=== PATIENT | male | born 1965 | race Caucasian/White ===

== ENCOUNTER → 2016-09-20 | Outpatient (REF) | payer OTHER ==
[2016-09-20 18:16] LABS: MEAN CORPUSCULAR HGB CONC 32.9 g/dl (32.0-36.5); MEAN CORPUSCULAR VOLUME 90.9 fl (80.0-96.0); RED CELL DISTRIBUTION WIDTH 12.8 % (11.5-14.5); WHITE BLOOD COUNT 12.1 K/mm3 (4.0-10.0)
[2016-09-20 19:11] LABS: ALBUMIN/GLOBULIN RATIO 1.33 (1.00-1.93); ALKALINE PHOSPHATASE 60 U/L (45-117); ALT/SGPT 31 U/L (12-78); ANION GAP 8 MEQ/L (8-16); AST/SGOT 22 U/L (15-37); BILIRUBIN,TOTAL 0.3 MG/DL (0.2-1.0); BLOOD UREA NITROGEN 17 MG/DL (7-18); CALCIUM LEVEL 9.5 MG/DL (8.5-10.1); CARBON DIOXIDE LEVEL 29 MEQ/L (21-32); CHLORIDE LEVEL 105 MEQ/L (98-107); CHOLESTEROL LEVEL 215 MG/DL (<200); CREATININE FOR GFR 1.03 MG/DL (0.70-1.30); GLOMERULAR FILTRATION RATE > 60.0 (>56); GLUCOSE, FASTING 65 MG/DL (70-105); SODIUM LEVEL 142 MEQ/L (136-145); TRIGLYCERIDES LEVEL 298 MG/DL (<150)
== END ==
LOC: M SFHCCLAY 14:04
PROVIDERS: ATTEND Nurse Practitioner Family
DX: F41.9 Anxiety disorder, unspecified (principal); I73.9 Peripheral vascular disease, unspecified

== ENCOUNTER → 2016-11-20 | Outpatient (CLI) | payer OTHER ==
--- NOTE | 2016-11-21 06:26 | REP ---
Clinical: Left-sided neck mass. Technique: Real time bone scale and color evaluation using curved array transducer. Findings: Directed ultrasound examination along the left side of the neck at the site of palpable mass demonstrates a complex primarily cystic and mildly vascular lesion measuring 5.4 x 1.7 x 5.0 cm which is otherwise nonspecific. Differential diagnosis may include necrotic lymph node and mass as well as complex cyst and less likely abscess. Impression: Complex cystic lesion corresponding to palpable mass. Differential diagnosis includes but is not limited to complex cyst, necrotic lymph node/mass lesion, and less likely abscess. Signed by Manpreet Barnard MD 11/21/2016 06:18 A
== END ==
LOC: M RAD 15:18
PROVIDERS: ATTEND Surgery
DX: R93.8 Abnormal findings on diagnostic imaging of other specified body structures (principal)

== ENCOUNTER → 2018-07-08 | Outpatient (REF) | payer OTHER ==
[2018-07-09 11:39] LABS: BASO # 0.2 10^3/uL (0.0-0.2); EOS # 0.5 10^3/uL (0.0-0.50); EOS % 4.8 % (0.0-3.0); HEMATOCRIT 35.5 % (42.0-52.0); LYMPH # 1.9 10^3/uL (1.5-4.5); LYMPH % 17.4 % (24.0-44.0); MEAN CORPUSCULAR HEMOGLOBIN 19.8 pg (27.0-33.0); MEAN CORPUSCULAR HGB CONC 28.2 g/dl (32.0-36.5); MEAN CORPUSCULAR VOLUME 70.4 fl (80.0-96.0); MONO # 1.1 10^3/uL (0.0-0.8); MONO % 9.7 % (0.0-5.0); NEUTROPHILS # 7.2 10^3/uL (1.8-7.7); NEUTROPHILS % 65.6 % (36.0-66.0); PLATELET COUNT, AUTOMATED 396 10^3/uL (150-450); RED BLOOD COUNT 5.04 10^6/uL (4.30-6.10); WHITE BLOOD COUNT 10.9 10^3/uL (4.0-10.0)
[2018-07-09 12:00] LABS: ALT/SGPT 29 U/L (12-78); BILIRUBIN,TOTAL 0.2 MG/DL (0.2-1.0); BLOOD UREA NITROGEN 21 MG/DL (7-18); CALCIUM LEVEL 8.6 MG/DL (8.5-10.1); CARBON DIOXIDE LEVEL 25 MEQ/L (21-32); CHLORIDE LEVEL 107 MEQ/L (98-107); CHOLESTEROL LEVEL 152 MG/DL (<200); CHOLESTEROL RISK RATIO 5.066 (<5); CREATININE FOR GFR 0.89 MG/DL (0.70-1.30); GLOMERULAR FILTRATION RATE > 60.0 (>56); GLUCOSE, FASTING 85 MG/DL (70-100); HDL CHOLESTEROL 30 MG/DL (>40); LDL CHOLESTEROL 95 MG/DL (<100); NON-HDL-C 122 MG/DL; POTASSIUM SERUM 4.2 MEQ/L (3.5-5.1); SODIUM LEVEL 140 MEQ/L (136-145); TOTAL PROTEIN 6.9 GM/DL (6.4-8.2); TRIGLYCERIDES LEVEL 137 MG/DL (<150)
== END ==
LOC: M SFHCCLAY 14:08
PROVIDERS: ATTEND Family Medicine
DX: I73.9 Peripheral vascular disease, unspecified (principal); E78.5 Hyperlipidemia, unspecified

== ENCOUNTER → 2018-09-20 | Outpatient (CLI) | payer OTHER ==
--- NOTE | 2018-09-20 16:48 | REP ---
PA and lateral chest: There are no comparisons. The lung reyna are clear. The cardiac size is normal. The anuj, mediastinum, and skeletal structures are unremarkable. Impression: Negative PA and lateral chest. Electronically Signed by Colten Russo MD 09/20/2018 04:39 P
== END ==
LOC: M CLY 14:51
PROVIDERS: ATTEND Nurse Practitioner Family
DX: Z87.09 Personal history of other diseases of the respiratory system (principal)

== ENCOUNTER 2019-01-04 17:20 | Emergency (ER) | payer OTHER ==
[~2019-01-04] VITALS: Ht 180.3 cm; Wt 86.4 kg
[2019-01-04 18:50] LABS: BASO # 0.1 10^3/uL (0.0-0.2); BASO % 1.3 % (0.0-1.0); EOS # 0.5 10^3/uL (0.0-0.50); EOS % 5.3 % (0.0-3.0); HEMATOCRIT 36.7 % (42.0-52.0); LYMPH # 1.3 10^3/uL (1.5-4.5); LYMPH % 12.5 % (24.0-44.0); MEAN CORPUSCULAR HEMOGLOBIN 23.5 pg (27.0-33.0); MEAN CORPUSCULAR VOLUME 78.3 fl (80.0-96.0); MONO # 0.8 10^3/uL (0.0-0.8); MONO % 7.9 % (0.0-5.0); NEUTROPHILS # 7.3 10^3/uL (1.8-7.7); NEUTROPHILS % 72.8 % (36.0-66.0); PLATELET COUNT, AUTOMATED 373 10^3/uL (150-450); RED BLOOD COUNT 4.69 10^6/uL (4.30-6.10); WHITE BLOOD COUNT 10.1 10^3/uL (4.0-10.0)
[2019-01-04 19:07] LABS: INR 1.14; PROTHROMBIN TIME 14.3 SECONDS (11.8-14.0)
[2019-01-04 19:08] LABS: PARTIAL THROMBOPLASTIN TIME 30.8 SECONDS (25.0-38.4)
[2019-01-04 19:09] LABS: ERYTHROCYTE SEDIMENTATION RATE 7 mm/hr (0-20)
[2019-01-04 19:12] LABS: BLOOD UREA NITROGEN 17 MG/DL (7-18); C REACTIVE PROTEIN QUANTITATIV < 0.30 MG/DL (0.00-0.30); CARBON DIOXIDE LEVEL 29 MEQ/L (21-32); CHLORIDE LEVEL 106 MEQ/L (98-107); CREATININE FOR GFR 0.93 MG/DL (0.70-1.30); GLOMERULAR FILTRATION RATE > 60.0 (>56); GLUCOSE, FASTING 103 MG/DL (70-100); POTASSIUM SERUM 3.9 MEQ/L (3.5-5.1); SODIUM LEVEL 139 MEQ/L (136-145)
--- NOTE | 2019-01-04 20:00 | REPVR ---
EXAM: US Duplex Bilateral Lower Extremity Veins EXAM DATE/TIME: 01/04/2019 7:26 PM CLINICAL HISTORY: 53 years old, male; Pain; Leg, upper; Bilateral; Prior surgery; Surgery date: 1-6 months; Surgery type: Fem bypass in November 2018; Additional info: R/O dvt/swelling and firmness b groin after femoral bypass TECHNIQUE: Imaging protocol: Real-time duplex ultrasound of the Bilateral Lower Extremities with 2-D obne scale, color Doppler flow and spectral waveform analysis with image documentation. Complete exam focused on the bilateral lower extremity veins. COMPARISON: No relevant prior studies available. FINDINGS: Right deep veins: Unremarkable. The common femoral, femoral and popliteal veins are patent without thrombus. Normal Doppler waveforms. Normal compressibility and/or augmentation response. Right superficial veins: Saphenofemoral junction is patent without thrombus. Left deep veins: Unremarkable. The common femoral, femoral and popliteal veins are patent without thrombus. Normal Doppler waveforms. Normal compressibility and/or augmentation response. Left superficial veins: Saphenofemoral junction is patent without thrombus. Lymph nodes: Mildly prominent bilateral inguinal lymph nodes, measuring up to 1.4 x 0.5 cm on the right and 1.9 x 0.8 cm on the left. Soft tissues: Unremarkable. IMPRESSION: 1. No sonographic evidence of deep venous thrombosis. 2. Mildly prominent bilateral inguinal lymph nodes, nonspecific in appearance. Electronically signed by: Reagan Caldwell On 01/04/2019 20:00:15 PM
[2019-01-04] MEDS ORDERED: ISOVUE-370 76% 100ML VIAL (Q9967) As Ordered ONE (20:52)
--- NOTE | 2019-01-04 21:35 | REPVR ---
EXAM: CT Angiography Pelvis With Contrast EXAM DATE/TIME: 01/04/2019 9:11 PM CLINICAL HISTORY: 53 years old, male; Condition or disease; Other: Swelling; Prior surgery; Surgery date: <1 month; Additional info: R/O pseudoaneurysm/swelling after femoral bypass TECHNIQUE: Imaging protocol: Axial computed tomographic angiography images of the pelvis with intravenous contrast material, including non-contrast images if performed. Coronal and sagittal reformatted images were created and reviewed. 3D rendering: MIP reconstructed images were created and reviewed. Radiation optimization: All CT scans at this facility use at least one of these dose optimization techniques: automated exposure control; mA and/or kV adjustment per patient size (includes targeted exams where dose is matched to clinical indication); or iterative reconstruction. Contrast material: ISOVUE 370;Contrast volume: 100 ml;Contrast route: IV; COMPARISON: CT ABD PELVIS WITH CONTRAST 12/13/2015 8:18 PM FINDINGS: VASCULATURE: Aorta: Moderate atherosclerotic disease. Aortobifemoral bypass graft in place. Right iliac arteries: Severe atherosclerotic disease with occlusion of the [place] external iliac artery. Severe atherosclerotic disease and multifocal narrowing of the internal iliac artery. Left iliac arteries: Severe atherosclerotic disease with severe multifocal stenosis of the [place] external iliac artery. Severe atherosclerotic disease with multifocal narrowing and occlusion of the internal iliac artery. PELVIS: Stomach and bowel: Colonic diverticulosis without evidence of diverticulitis. Appendix: Normal. Bladder: Normal. No mass. Reproductive: Unremarkable as visualized. Intraperitoneal space: Unremarkable. No free air. No significant fluid collection. Retroperitoneal space: Small amount of left retroperitoneal edema and stranding, likely postsurgical. Bones/joints: No acute osseous abnormality. Mild degenerative changes. Soft tissues: Small, fat-containing umbilical hernia. Postsurgical changes in the bilateral inguinal regions and left lateral abdominal wall. No organized collection. No pseudoaneurysm. Lymph nodes: Small inguinal lymph nodes, likely reactive. No pathologically enlarged lymph nodes. IMPRESSION: 1. Postsurgical changes associated with recent aortobifemoral bypass. No organized collection. No definite pseudoaneurysm. 2. Additional findings, as above. Electronically signed by: Reagan Caldwell On 01/04/2019 21:34:45 PM
[2019-01-04 22:37] VITALS: BP 130/74
--- NOTE | 2019-01-13 09:28 | ED PDOC ---
Post-Departure Follow-Up [facility] demarco leblanc faxed formal report of cta pelvis for fu Jay Barreto MD Jan 13, 2019 09:28
== END 2019-01-04 22:39 | disposition home or self-care (01) ==
LOC: M ED 17:20
DX: R59.0 Localized enlarged lymph nodes (principal); I10 Essential (primary) hypertension; K27.9 Peptic ulcer, site unspecified, unspecified as acute or chronic, without hemorrhage or perforation; Z86.718 Personal history of other venous thrombosis and embolism; Z79.82 Long term (current) use of aspirin; F17.210 Nicotine dependence, cigarettes, uncomplicated
CPT/HCPCS: 36415; 72191; 76857; 80048; 85025; 85610; 85652; 85730; 86140; 93970; 99284; Q9967

== ENCOUNTER 2021-04-06 13:44 | Emergency (ER) | payer OTHER ==
[~2021-04-06] VITALS: Ht 180.3 cm; Wt 88.0 kg
--- OUTSIDE RECORDS SUMMARY | 2021-04-06 13:50 | CCD ---
Author Author [facility] Organization [facility] Address Unknown Phone Unavailable Care Team Providers Care Moisture Tester Name Role Phone Nicol Fontenot Unavailable PROBLEMS Type Condition ICD9-CM Code [id number] Code Onset Dates Condition S tatus W/U Status Risk SNOMED Code Notes Problem Erectile dysfunction, unspecified erectile dysfunction typ e N52.9 Active confirmed 904805284 Problem Nicotine dependence, unspecified, uncomplicated F1 7.200 Active confirmed 641210088 Problem Anxiety disorder, unspecified F41.9 Active confirm ed 854180302 Problem Hyperlipidemia, unspecified hyperlipidemia type E7 8.5 Active confirmed 95814302 Problem Sinusitis, unspecified chronicity, unspecified location J32.9 Active confirmed 32628348 Problem Diverticulitis of large inte jaylon without perforation or abscess without bleeding K57.32 Active confirmed 2097860 Problem Cigarette nicotine dependence without complication F17.210 Active confirmed 44961803 Problem Claudication I73.9 Active confirmed 9530185 00 Problem PAD (peripheral artery disease) I73.9 Active confi rmed 070272146 Problem Elevated blood-pressure reading, without diagnos is of hypertension R03.0 Active confirmed 757091383 Problem Peripheral vascular disease I73.9 Active confirmed 216208384 Problem Microcytic anemia D50.9 Active confirmed 23 3238735 Problem 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 Active confirmed 341679646 Problem Essential hypertension I10 Active confirmed 89391774 ALLERGIES Allergen (clinical drug ingredient) Drug/Non Drug Allergy do cumented on EMR Reaction Allergy Type Onset Date Status oxycodone Oxycodone Confusion Drug Allergy Active ENCOUNTERS from 1965 to 2021-04-05 Encounter Location Date Provider Diagnosis [facility] [phone] [place] [address] Mar, Nicol Mccallumry IMMUNIZATIONS No Information SOCIAL HISTORY Tobacco Use: Social History Observation Description Date Details (start date - stop date) Current Smoker Sex Assigned At : Social History Observation Description Sex Assigned At Unknown Education: Question Answer Notes Level of Education: College Audit Question Answer Notes Total Score: 4 Interpretation: Alcohol Education Language: Question Answer Notes Languages spoken: Polish Sexual Hx: Question Answer Notes Had sex in the last 12 months (vaginal, oral, or anal)? Yes Have you ever had an STD? No with Women only Use protection? No Drug and Alcohol Question Answer Notes Total Score: 1 Interpretation: Low level Alcohol Screening: Question Answer Notes Did you have a drink containing alcohol in the past year? Ye s Points 5 Interpretation Positive How often did you have six or more drinks on one occas ion in the past year? Less than monthly (1 point) How many drinks did you have on a typica l day when you were drinking in the past year? 5 or 6 (2 points) How often did you have a drink containing alcohol in t he past year? Two to four times a month (2 points) BMI Care Goal Follow-Up Question Answer Notes Above Normal BMI Follow-Up Dietary management educatio n, guidance, and counseling Tobacco Use: Question Answer Notes Are you a: current smoker Additional Findings: Tobacco User Moderate cigarette smoker (10-19 cigs/day) Smoking Cessation Information Given 03/08/2021 Patient counseled on the dangers of tobacco use and urged to quit: 03/08/2021 How many cigarettes a day do you smoke? 11-20 Are you interested in quitting? Thinking about quitting REASON FOR REFERRAL No Information VITAL SIGNS No information MEDICATIONS Medication SIG (Take, Route, Frequency, Duration) Notes Start Da te End Date Status Nitroglycerin 0.4 MG as directed Sublingual Unknown Amoxicillin 500 MG 1 tablet Orally Three times a day for 10 day( s) Sep, Unknown Multivitamin Adults - Orally Unk nown Toprol XL 25 MG 1 tablet Orally Once a day for 90 Unknown Ferrous Sulfate 324 (65 Fe) MG 1 tablet Orally D50.9 Once a day Unknown Amoxicillin-Pot Clavulanate 875-125 MG 1 tablet Orally every 12 hrs for 10 day(s) Feb, Not-Taking Lisinopril 2.5 MG 1 tablet Orally Once a day for 90 Unknown Nicotine 21 MG/24HR 1 patch to skin Transdermal Once a day Unknown Xanax 0.5 MG 1 tablet Orally tid for 30 Days Mar, Active Aspirin 81 MG 1 tablet Orally Once a day Unknown Acetaminophen-Codeine #3 300-30 MG 1 tablet as needed Orally every 6 hrs, MDD=4 for 7 day(s) Mar, Active Aspirin 81 MG as directed Orally Feb, A ctive Atorvastatin Calcium 40 MG 1 tablet Orally Once a day Active PROCEDURES No Information RESULTS No Results REASON FOR VISIT Xanax MEDICAL (GENERAL) HISTORY Type Description Date Medical History ANXIETY with Panic Medical History Diverticulosis Medical History PAD: Dr. Jackson Medical History PVD Medical History HYPERTENSION Medical History ERECTILE DYSFUNCTION Surgical History Tonsillectomy/Adnoidectomy AGE 2 Surgical History Angioplasty 10/2017 Surgical History aortobifem bypass d/t bilate ral claudication and aortoiliac occlusive disease 11/2018 Hospitalization History [facility] 11/27/2018- 019 Goals Section No Information Health Concerns No Information MEDICAL EQUIPMENT No Information MENTAL STATUS No Information FUNCTIONAL STATUS No Information ASSESSMENTS No Information PLAN OF TREATMENT Medication Medication Name Sig Start Date Stop Date Atorvastatin Calcium 40 MG 1 tablet Orally Once a day Aspirin 81 MG as directed Orally Feb, Xanax 0.5 MG 1 tablet Orally tid for 30 Days Mar, Acetaminophen-Codeine #3 300-30 MG 1 tablet as needed Orally every 6 hrs, MDD=4 for 7 day(s) Mar, Insurance Providers Payer Name Payer Address Payer Phone Insured Name Patient Relati onship to Insured Coverage Start Date Coverage End Date [facility] [employer] CLAIM[facility] DEPT [address] [place] [phone] [employer] self
--- OUTSIDE RECORDS SUMMARY | 2021-04-06 13:51 | CCD ---
Author Author [facility] Organization [facility] Address Unknown Phone Unavailable Care Team Providers Care Sales Floor Team Member Name Role Phone Nicol Fontenot Unavailable PROBLEMS Type Condition ICD9-CM Code [id number] Code Onset Dates Condition S tatus W/U Status Risk SNOMED Code Notes Problem Erectile dysfunction, unspecified erectile dysfunction typ e N52.9 Active confirmed 897104740 Problem Nicotine dependence, unspecified, uncomplicated F1 7.200 Active confirmed 543666303 Problem Anxiety disorder, unspecified F41.9 Active confirm ed 867651911 Problem Hyperlipidemia, unspecified hyperlipidemia type E7 8.5 Active confirmed 78989466 Problem Sinusitis, unspecified chronicity, unspecified location J32.9 Active confirmed 01299961 Problem Diverticulitis of large inte jaylon without perforation or abscess without bleeding K57.32 Active confirmed 4966584 Problem Cigarette nicotine dependence without complication F17.210 Active confirmed 32582739 Problem Claudication I73.9 Active confirmed 3642636 00 Problem PAD (peripheral artery disease) I73.9 Active confi rmed 908735414 Problem Elevated blood-pressure reading, without diagnos is of hypertension R03.0 Active confirmed 125951063 Problem Peripheral vascular disease I73.9 Active confirmed 203177842 Problem Microcytic anemia D50.9 Active confirmed 23 8751018 Problem 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 Active confirmed 402337843 Problem Essential hypertension I10 Active confirmed 75707816 ALLERGIES Allergen (clinical drug ingredient) Drug/Non Drug Allergy do cumented on EMR Reaction Allergy Type Onset Date Status oxycodone Oxycodone Confusion Drug Allergy Active ENCOUNTERS from 1963 to 2021-03-09 Encounter Location Date Provider Diagnosis [facility] [phone] [place] [address] Feb, Nicol Fontenot Cigarette nicotine dependence without co mplication F17.210 ; Peripheral vascular disease I73.9 ; Hyperlipidemia, unspecified hyperlipidemia type E78.5 ; Diverticulitis of large intestine without perforation or abscess without bleeding K57.32 ; Poor dentition K08.9 and PAD (peripheral artery disease) I73.9 IMMUNIZATIONS No Information SOCIAL HISTORY Tobacco Use: Social History Observation Description Date Details (start date - stop date) Current Smoker Sex Assigned At : Social History Observation Description Sex Assigned At Unknown Education: Question Answer Notes Level of Education: College Audit Question Answer Notes Total Score: 4 Interpretation: Alcohol Education Language: Question Answer Notes Languages spoken: Citizen Of [place] Sexual Hx: Question Answer Notes Had sex [...] REASON FOR REFERRAL No Information VITAL SIGNS Weight 198 lbs Feb, Weight-kg 89.81 kg Feb, Height 71 in Feb, BMI 27.61 kg/m2 Feb, Heart Rate 72 /min Feb, Respiratory Rate 20 /min Feb, Temperature 98.1 degrees Fahrenheit Feb, Oximetry 96 Feb, Blood pressure systolic 124 mm Hg Feb, Blood pressure diastolic 76 mm Hg Feb, MEDICATIONS Medication SIG (Take, Route, Frequency, Duration) Notes Start Da te End Date Status Aspirin 81 MG 1 tablet Orally Once a day Unknown Amoxicillin 500 MG 1 tablet Orally Three times a day for 10 day( s) Sep, Unknown Multivitamin Adults - Orally Unk nown Toprol XL 25 MG 1 tablet Orally Once a day for 90 Unknown Ferrous Sulfate 324 (65 Fe) MG 1 tablet Orally D50.9 Once a day Unknown Xanax 0.5 MG 1 tablet Orally four times daily as needed MDD=4 for 30 Days Jan, Active Nitroglycerin 0.4 MG as directed Sublingual Unknown Nicotine 21 MG/24HR 1 patch to skin Transdermal Once a day Unknown Amoxicillin-Pot Clavulanate 875-125 MG 1 tablet Orally every 12 hrs for 10 day(s) Feb, Not-Taking Atorvastatin Calcium 40 MG 1 tablet Orally Once a day Active Lisinopril 2.5 MG 1 tablet Orally Once a day for 90 Unknown Aspirin 81 MG as directed Orally Feb, A ctive Acetaminophen-Codeine #3 300-30 MG 1 tablet as needed Orally every 6 hrs, MDD=4 for 7 day(s) Feb, Active PROCEDURES No Information RESULTS No Results REASON FOR VISIT former SP pt MEDICAL (GENERAL) HISTORY Type Description Date Medical History ANXIETY with Panic Medical History Diverticulosis Medical History PAD: Dr. Jackson Medical History PVD Medical History HYPERTENSION Medical History ERECTILE DYSFUNCTION Surgical History Tonsillectomy/Adnoidectomy AGE 2 Surgical History Angioplasty 10/2017 Surgical History aortobifem bypass d/t bilate ral claudication and aortoiliac occlusive disease 11/2018 Hospitalization History [facility] 11/27/2018- 019 Goals Section No Information Health Concerns No Information MEDICAL EQUIPMENT No Information MENTAL STATUS No Information FUNCTIONAL STATUS No Information ASSESSMENTS Encounter Date Diagnosis Assessment Notes Treatment Notes Treatm ent Clinical Notes Feb, Cigarette nicotine dependenc e without complication (ICD-10 - F17.210) smoking cessation counseling given. Risks of smoking, including vascular disease (including stroke, heart attack), COPD ( including emphysema and chronic bronchitis), as well as reduced quality of life reviewed with pt Feb, Peripheral vascular disease (ICD-10 - I73.9) Continue with vascular surgery Feb, Hyperlipidemia, unspecified hyperlipidemia type (ICD-10 - E78.5) He will continue to take his moderate dose statin. Most likely he was placed on this due to his history of smoking some hyperlipidemia as well as peripheral vascular and peripheral artery disease for cardiovascular protection. Patient was advised he needs a CMP and lipid updated Feb, Diverticulitis of large inte jaylon without perforation or abscess without bleeding (ICD-10 - K57.32) Patient was strongly encouraged to proceed with colonoscopy given his history of diverticulitis as well as family history of colon cancer in his mother. He continues to decline colonoscopy and states he will monitor his symptoms. Feb, Poor dentition (ICD-10 - K08.9) I strongly encourage patient to find a dentist and discussed the ramifications of continued poor dentition and recurrent oral infections. Feb, PAD (peripheral artery disease) (ICD-10 - I73.9) Continue with vascular surgery. I did stop the cilostazol. I advised if his claudication symptoms return patient to contact the office. He was placed on aspirin 81 mg daily. He declined the Plavix. Patient is aware that his smoking increases his risk of further peripheral artery disease or other complications Feb, Other Patient is to c omplete his labs we will see him back in the office in 6 months time or sooner as needed. Patient verbalized understanding and agreement with stated plan PLAN OF TREATMENT Medication Medication Name Sig Start Date Stop Date Atorvastatin Calcium 40 MG 1 tablet Orally Once a day Aspirin 81 MG as directed Orally Feb, Treatment Notes Assessment Notes Clinical Notes Cigarette nicotine dependence without complication smoking cessation counseling given. Risks of smoking, including vascular disease (including stroke, heart attack), COPD ( including emphysema and chronic bronchitis), as well as reduced quality of life reviewed with pt Peripheral vascular disease Continue wit h vascular surgery Hyperlipidemia, unspecified hyperlipidemia type He will continue to take his moderate dose statin. Most likely he was placed on this due to his history of smoking some hyperlipidemia as well as peripheral vascular and peripheral artery disease for cardiovascular protection. Patient was advised he needs a CMP and lipid updated Diverticulitis of large intestine withou t perforation or abscess without bleeding Patient was strongly encoura ged to proceed with colonoscopy given his history of diverticulitis as well as family history of colon cancer in his mother. He continues to decline colonoscopy and states he will monitor his symptoms. Poor dentition I strongly encourage patient to find a dentist and discussed the ramifications of continued poor dentition and recurrent oral infections. PAD (peripheral artery disease) Continue with vascular surgery. I did stop the cilostazol. I advised if his claudication symptoms return patient to contact the office. He was placed on aspirin 81 mg daily. He declined the Plavix. Patient is aware that his smoking increases his risk of further peripheral artery disease or other complications Treatment Notes Test Name Order Date Low Dose Lung Screening CT Chest 2021-03-08 Next Appt Details 6 Months Reason: Insurance Providers Payer Name Payer Address Payer Phone Insured Name Patient Relati onship to Insured Coverage Start Date Coverage End Date [facility] [employer] DEPT [address] [facility] [phone] [employer] self
--- OUTSIDE RECORDS SUMMARY | 2021-04-06 13:51 | CCD ---
Author Author [facility] Organization [facility] Address Unknown Phone Unavailable Care Team Providers Care Calculating Machine Operator Name Role Phone Nicol Fontenot Unavailable PROBLEMS Type Condition ICD9-CM Code [id number] Code Onset Dates Condition S tatus W/U Status Risk SNOMED Code Notes Problem Nicotine dependence, unspecified, uncomplicated F1 7.200 Active confirmed 598678686 Problem Elevated blood-pressure reading, without diagnos is of hypertension R03.0 Active confirmed 697683311 Problem Hyperlipidemia, unspecified hyperlipidemia type E7 8.5 Active confirmed 24394200 Problem Erectile dysfunction, unspecified erectile dysfunction typ e N52.9 Active confirmed 155263488 Problem 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 Active confirmed 173716348 Problem Anxiety disorder, unspecified F41.9 Active confirm ed 448442044 Problem Essential hypertension I10 Active confirmed 45536293 Problem Claudication I73.9 Active confirmed 5127533 00 Problem Sinusitis, unspecified chronicity, unspecified location J32.9 Active confirmed 95243934 Problem Diverticulitis of large inte jaylon without perforation or abscess without bleeding K57.32 Active confirmed 0721929 Problem Peripheral vascular disease I73.9 Active confirmed 449619129 Problem Microcytic anemia D50.9 Active confirmed 23 4189441 ALLERGIES Allergen (clinical drug ingredient) Drug/Non Drug Allergy do cumented on EMR Reaction Allergy Type Onset Date Status [place] confusion Drug Allergy Active ENCOUNTERS from 1965 to 2021-02-23 Encounter Location Date Provider Diagnosis [facility] Aleah [address] [phone] [place] [address] Feb, Nicol Fontenot IMMUNIZATIONS No Information SOCIAL HISTORY Tobacco Use: Social History Observation Description Date Details (start date - stop date) Current Smoker Sex Assigned At : Social History Observation Description Sex Assigned At Unknown Education: Question Answer Notes Level of Education: College Audit Question Answer Notes Total Score: 9 Interpretation: Simple Advice Language: Question Answer Notes Languages spoken: Persian Sexual Hx: Question Answer Notes Had sex [...] smoker (10-19 cigs/day) Smoking Cessation Information Given 12/17/2018 Patient counseled on the dangers of tobacco use and urged to quit: 12/17/2018 How many cigarettes a day do you smoke? 11-20 Are you interested in quitting? Thinking about quitting REASON FOR REFERRAL No Information VITAL SIGNS No information MEDICATIONS Medication SIG (Take, Route, Frequency, Duration) Notes Start Da te End Date Status Atorvastatin Calcium 40 MG 1 tablet Orally Once a day for 90 Active Aspirin 81 MG 1 tablet Orally Once a day Unknown Ferrous Sulfate 324 (65 Fe) MG 1 tablet Orally D50.9 Once a day Unknown Nitroglycerin 0.4 MG as directed Sublingual Unknown Acetaminophen-Codeine #3 300-30 MG 1 tablet as needed Orally every 6 hrs, MDD=4 for 7 day(s) Jan, Active Nicotine 21 MG/24HR 1 patch to skin Transdermal Once a day Unknown Lisinopril 2.5 MG 1 tablet Orally Once a day for 90 Unknown Xanax 0.5 MG 1 tablet Orally four times daily as needed MDD=4 for 30 Days Jan, Active Multivitamin Adults - Orally Unk nown Amoxicillin 500 MG 1 tablet Orally Three times a day for 10 day( s) Sep, Unknown Toprol XL 25 MG 1 tablet Orally Once a day for 90 Unknown Cilostazol 100 MG 1 tablet 30 minutes before o r 2 hours after breakfast and dinner Orally once a day for 30 Days Active PROCEDURES No Information RESULTS No Results REASON FOR VISIT script MEDICAL (GENERAL) HISTORY Type Description Date Medical History ANXIETY Medical History PANIC ATTACKS Medical History ERECTILE DYSFUNCTION Medical History DIVERTICULAR DISEASE Medical History PAD Medical History PVD Medical History HYPERTENSION Surgical History t & a AGE 2 Surgical History Angioplasty 10/2017 Surgical History aortobifem and right femoral d/t bilateral claudication and aortoiliac occlusive disease 11/2018 Hospitalization History [facility] 11/27/2018- 019 Goals Section No Information Health Concerns No Information MEDICAL EQUIPMENT No Information MENTAL STATUS No Information FUNCTIONAL STATUS No Information ASSESSMENTS No Information PLAN OF TREATMENT Medication Medication Name Sig Start Date Stop Date Xanax 0.5 MG 1 tablet Orally four times daily as need ed MDD=4 for 30 Days Jan, Atorvastatin Calcium 40 MG 1 tablet Orally Once a day for 90 Cilostazol 100 MG 1 tablet 30 minutes before o r 2 hours after breakfast and dinner Orally once a day for 30 Days Acetaminophen-Codeine #3 300-30 MG 1 tablet as needed Orally every 6 hrs, MDD=4 for 7 day(s) Jan, Next Appt Details Provider Name:Nicol Fontenot, 03-08 04:00:00 PM, [address] , , [place], [address], Insurance Providers Payer Name Payer Address Payer Phone Insured Name Patient Relati onship to Insured Coverage Start Date Coverage End Date [facility] CORPORATE CLAIMS DEPT [address] [facility] [phone] HAIR FARRIS self
--- OUTSIDE RECORDS SUMMARY | 2021-04-06 13:51 | CCD ---
Author Author [facility] Organization [facility] Address Unknown Phone Unavailable Care Team Providers Care Lead Qa Analyst Name Role Phone [facility] Unavailable PROBLEMS Type Condition ICD9-CM Code [id number] Code Onset Dates Condition S tatus W/U Status Risk SNOMED Code Notes Problem Nicotine dependence, unspecified, uncomplicated F1 7.200 Active confirmed 710783881 Problem Elevated blood-pressure reading, without diagnos is of hypertension R03.0 Active confirmed 730905271 Problem Hyperlipidemia, unspecified hyperlipidemia type E7 8.5 Active confirmed 91211021 Problem Erectile dysfunction, unspecified erectile dysfunction typ e N52.9 Active confirmed 881564872 Problem 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 Active confirmed 008494812 Problem Anxiety disorder, unspecified F41.9 Active confirm ed 879876626 Problem Essential hypertension I10 Active confirmed 11463503 Problem Claudication I73.9 Active confirmed 3648177 00 Problem Sinusitis, unspecified chronicity, unspecified location J32.9 Active confirmed 62439201 Problem Diverticulitis of large inte jaylon without perforation or abscess without bleeding K57.32 Active confirmed 4589151 Problem Peripheral vascular disease I73.9 Active confirmed 413077242 Problem Microcytic anemia D50.9 Active confirmed 23 2536880 ALLERGIES Allergen (clinical drug ingredient) Drug/Non Drug Allergy do cumented on EMR Reaction Allergy Type Onset Date Status [place] confusion Drug Allergy Active ENCOUNTERS from 1965 to 2021-01-28 Encounter Location Date Provider Diagnosis [facility] [address] [phone] [place] [address] Jan, Albert Armenta Pain, dental K08.89 IMMUNIZATIONS No Information SOCIAL HISTORY Tobacco Use: Social History Observation Description Date Details (start date - stop date) Current Smoker Sex Assigned At : Social History Observation Description Sex Assigned At Unknown Education: Question Answer Notes Level of Education: College Audit Question Answer Notes Total Score: 9 Interpretation: Simple Advice Language: Question Answer Notes Languages spoken: Estonian Sexual Hx: Question Answer Notes Had sex [...] Notes Start Da te End Date Status Toprol XL 25 MG 1 tablet Orally Once a day for 90 Unknown Xanax 0.5 MG 1 tablet Orally four times daily as needed MDD=4 for 30 Days Feb, Active Atorvastatin Calcium 40 MG 1 tablet Orally Once a day for 90 Unknown Multivitamin Adults - Orally Unk nown Aspirin 81 MG 1 tablet Orally Once a day Unknown Lisinopril 2.5 MG 1 tablet Orally Once a day for 90 Unknown Ferrous Sulfate 324 (65 Fe) MG 1 tablet Orally D50.9 Once a day Unknown Nicotine 21 MG/24HR 1 patch to skin Transdermal Once a day Unknown Cilostazol 100 MG 1 tablet 30 minutes before o r 2 hours after breakfast and dinner Orally Twice a day Unknow n Amoxicillin 500 MG 1 tablet Orally Three times a day for 10 day( s) Sep, Unknown Acetaminophen-Codeine #3 300-30 MG 1 tablet as needed Orally every 6 hrs, MDD=4 for 7 day(s) Jan, Active Nitroglycerin 0.4 MG as directed Sublingual Unknown PROCEDURES No Information RESULTS No Results REASON FOR VISIT renewal MEDICAL (GENERAL) HISTORY Type Description Date Medical History ANXIETY Medical History PANIC ATTACKS Medical History ERECTILE DYSFUNCTION Medical History DIVERTICULAR DISEASE Medical History PAD Medical History PVD Medical History HYPERTENSION Surgical History t & a AGE 2 Surgical History Angioplasty 10/2017 Surgical History aortobifem and right femoral d/t bilateral claudication and aortoiliac occlusive disease 11/2018 Hospitalization History [facility] 11/27/2018- 019 Goals Section No Information Health Concerns No Information MEDICAL EQUIPMENT No Information MENTAL STATUS No Information FUNCTIONAL STATUS No Information ASSESSMENTS Encounter Date Diagnosis Assessment Notes Treatment Notes Treatm ent Clinical Notes Jan, Pain, dental (ICD-10 - K08.89) PLAN OF TREATMENT Medication Medication Name Sig Start Date Stop Date Xanax 0.5 MG 1 tablet Orally four times daily as need ed MDD=4 for 30 Days Feb, Acetaminophen-Codeine #3 300-30 MG 1 tablet as needed Orally every 6 hrs, MDD=4 for 7 day(s) Jan, Next Appt Details Provider Name:Nicol Fontenot, 03-08 04:00:00 PM, [address] , , [place], [address], Insurance Providers Payer Name Payer Address Payer Phone Insured Name Patient Relati onship to Insured Coverage Start Date Coverage End Date [facility] CORPORATE CLAIMS DEPT [address] [facility] [phone] HAIR [place]ARRIS self
--- OUTSIDE RECORDS SUMMARY | 2021-04-06 13:51 | CCD ---
Author Author [facility] Organization [facility] Address Unknown Phone Unavailable Care Team Providers Care Cloth Roll Winder Name Role Phone Rock Nichols Unavailable PROBLEMS Type Condition ICD9-CM Code [id number] Code Onset Dates Condition S tatus W/U Status Risk SNOMED Code Notes Problem Nicotine dependence, unspecified, uncomplicated F1 7.200 Active confirmed 645135505 Problem Elevated blood-pressure reading, without diagnos is of hypertension R03.0 Active confirmed 280669065 Problem Hyperlipidemia, unspecified hyperlipidemia type E7 8.5 Active confirmed 08199019 Problem Erectile dysfunction, unspecified erectile dysfunction typ e N52.9 Active confirmed 961519826 Problem 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 Active confirmed 621921063 Problem Anxiety disorder, unspecified F41.9 Active confirm ed 275980574 Problem Essential hypertension I10 Active confirmed 91986659 Problem Claudication I73.9 Active confirmed 9135143 00 Problem Sinusitis, unspecified chronicity, unspecified location J32.9 Active confirmed 39373858 Problem Diverticulitis of large inte jaylon without perforation or abscess without bleeding K57.32 Active confirmed 7333252 Problem Peripheral vascular disease I73.9 Active confirmed 556736927 Problem Microcytic anemia D50.9 Active confirmed 23 6629209 ALLERGIES Allergen (clinical drug ingredient) Drug/Non Drug Allergy do cumented on EMR Reaction Allergy Type Onset Date Status [place] confusion Drug Allergy Active ENCOUNTERS from 1963 to 2021-02-25 Encounter Location Date Provider Diagnosis [facility] Aleah [address] [phone] [place] [address] Feb, Rock Nichols IMMUNIZATIONS No Information SOCIAL HISTORY Tobacco Use: Social History Observation Description Date Details (start date - stop date) Current Smoker Sex Assigned At : Social History Observation Description Sex Assigned At Unknown Education: Question Answer Notes Level of Education: College Audit Question Answer Notes Total Score: 9 Interpretation: Simple Advice Language: Question Answer Notes Languages spoken: Thai Sexual Hx: Question Answer Notes Had sex [...] every 12 hrs for 10 day(s) Feb, Active Xanax 0.5 MG 1 tablet Orally four times daily as needed MDD=4 for 30 Days Jan, Active Atorvastatin Calcium 40 MG 1 tablet Orally Once a day for 90 Active Multivitamin Adults - Orally Unk nown Ferrous Sulfate 324 (65 Fe) MG 1 tablet Orally D50.9 Once a day Unknown Cilostazol 100 MG 1 tablet 30 minutes before o r 2 hours after breakfast and dinner Orally once a day for 30 Days Active Acetaminophen-Codeine #3 300-30 MG 1 tablet as needed Orally every 6 hrs, MDD=4 for 7 day(s) Jan, Active Aspirin 81 MG 1 tablet Orally Once a day Unknown Toprol XL 25 MG 1 tablet Orally Once a day for 90 Unknown Amoxicillin 500 MG 1 tablet Orally Three times a day for 10 day( s) Sep, Unknown Lisinopril 2.5 MG 1 tablet Orally Once a day for 90 Unknown PROCEDURES No Information RESULTS No Results [...] Medication Name Sig Start Date Stop Date Amoxicillin-Pot Clavulanate 875-125 MG 1 tablet Orally every 12 hrs for 10 day(s) Feb, Atorvastatin Calcium 40 MG 1 tablet Orally Once a day for 90 Cilostazol 100 MG 1 tablet 30 minutes before o r 2 hours after breakfast and dinner Orally once a day for 30 Days Xanax 0.5 MG 1 tablet Orally four times daily as need ed MDD=4 for 30 Days Jan, Acetaminophen-Codeine #3 300-30 MG 1 tablet as needed Orally every 6 hrs, MDD=4 for 7 day(s) Jan, Next Appt Details Provider Name:Nicol Fontenot, 2020-03-08 04:00:00 PM, [address] , , [place], [address], Insurance Providers Payer Name Payer Address Payer Phone Insured Name Patient Relati onship to Insured Coverage Start Date Coverage End Date [facility] CORPORATE CLAIMS DEPT [address] [facility] [phone] HAIR FARRIS self
--- OUTSIDE RECORDS SUMMARY | 2021-04-06 13:51 | CCD ---
Author Author [facility] Organization [facility] Address Unknown Phone Unavailable Care Team Providers Care Grout Machine Operator Name Role Phone Nicol Fontenot Unavailable PROBLEMS Type Condition ICD9-CM Code PCA41-BH Code Onset Dates Condition S tatus W/U Status Risk SNOMED Code Notes Problem Nicotine dependence, unspecified, uncomplicated F1 7.200 Active confirmed 088148600 Problem Elevated blood-pressure reading, without diagnos is of hypertension R03.0 Active confirmed 790840300 Problem Hyperlipidemia, unspecified hyperlipidemia type E7 8.5 Active confirmed 22561947 Problem Erectile dysfunction, unspecified erectile dysfunction typ e N52.9 Active confirmed 783813156 Problem 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 Active confirmed 024966420 Problem Anxiety disorder, unspecified F41.9 Active confirm ed 484552663 Problem Essential hypertension I10 Active confirmed 52759319 Problem Claudication I73.9 Active confirmed 0174838 00 Problem Sinusitis, unspecified chronicity, unspecified location J32.9 Active confirmed 93674682 Problem Diverticulitis of large inte jaylon without perforation or abscess without bleeding K57.32 Active confirmed 3777520 Problem Peripheral vascular disease I73.9 Active confirmed 060598268 Problem Microcytic anemia D50.9 Active confirmed 23 7920345 ALLERGIES Allergen (clinical drug ingredient) Drug/Non Drug Allergy do cumented on EMR Reaction Allergy Type Onset Date Status [place] confusion Drug Allergy Active ENCOUNTERS from 1965 to 2021-03-01 Encounter Location Date Provider Diagnosis [facility] [address] [phone] [place] [address] Feb, Nicol Fontenot Pain, dental K08.89 IMMUNIZATIONS No Information SOCIAL HISTORY Tobacco Use: Social History Observation Description Date Details (start date - stop date) Current Smoker Sex Assigned At : Social History Observation Description Sex Assigned At Unknown Education: Question Answer Notes Level of Education: College Audit Question Answer Notes Total Score: 9 Interpretation: Simple Advice Language: Question Answer Notes Languages spoken: Marshallese Sexual Hx: Question Answer Notes Had sex [...] once a day for 30 Days Active Toprol XL 25 MG 1 tablet Orally Once a day for 90 Unknown Aspirin 81 MG 1 tablet Orally Once a day Unknown Acetaminophen-Codeine #3 300-30 MG 1 tablet as needed Orally every 6 hrs, MDD=4 for 7 day(s) Feb, Active Amoxicillin 500 MG 1 tablet Orally Three times a day for 10 day( s) Sep, Unknown Lisinopril 2.5 MG 1 tablet Orally Once a day for 90 Unknown PROCEDURES No Information RESULTS No Results REASON FOR VISIT refill MEDICAL (GENERAL) HISTORY Type Description Date Medical History ANXIETY Medical History PANIC ATTACKS Medical History ERECTILE DYSFUNCTION Medical History DIVERTICULAR DISEASE Medical History PAD Medical History PVD Medical History HYPERTENSION Surgical History t & a AGE 2 Surgical History Angioplasty 10/2017 Surgical History aortobifem and right femoral d/t bilateral claudication and aortoiliac occlusive disease 11/2018 Hospitalization History [facility] 11/27/2018- 019 Goals Section No Information Health Concerns No Information MEDICAL EQUIPMENT No Information MENTAL STATUS No Information FUNCTIONAL STATUS No Information ASSESSMENTS Encounter Date Diagnosis Assessment Notes Treatment Notes Treatm ent Clinical Notes Feb, Pain, dental (ICD-10 - K08.89) PLAN OF [...] 6 hrs, MDD=4 for 7 day(s) Feb, Next Appt Details Provider Name:Nicol Fontenot, 03-08 04:00:00 PM, [address], , [place], [address], Insurance Providers Payer Name Payer Address Payer Phone Insured Name Patient Relati onship to Insured Coverage Start Date Coverage End Date [facility] CORPORATE CLAIMS DEPT [address] [place] [phone] HAIR FARRIS self
--- OUTSIDE RECORDS SUMMARY | 2021-04-06 13:51 | CCD ---
Author Author [facility] Organization [facility] Address Unknown Phone Unavailable Care Team Providers Care Tube Molder Fiberglass Name Role Phone Nicol Fontenot Unavailable PROBLEMS Type Condition ICD9-CM Code UAH07-JV Code Onset Dates Condition S tatus W/U Status Risk SNOMED Code Notes Problem Erectile dysfunction, unspecified erectile dysfunction typ e N52.9 Active confirmed 977461779 Problem Nicotine dependence, unspecified, uncomplicated F1 7.200 Active confirmed 034436030 Problem Anxiety disorder, unspecified F41.9 Active confirm ed 337863225 Problem Hyperlipidemia, unspecified hyperlipidemia type E7 8.5 Active confirmed 49551965 Problem Sinusitis, unspecified chronicity, unspecified location J32.9 Active confirmed 49924309 Problem Diverticulitis of large inte jaylon without perforation or abscess without bleeding K57.32 Active confirmed 8342534 Problem Cigarette nicotine dependence without complication F17.210 Active confirmed 32593223 Problem Claudication I73.9 Active confirmed 5001147 00 Problem PAD (peripheral artery disease) I73.9 Active confi rmed 063098585 Problem Elevated blood-pressure reading, without diagnos is of hypertension R03.0 Active confirmed 056573588 Problem Peripheral vascular disease I73.9 Active confirmed 878420151 Problem Microcytic anemia D50.9 Active confirmed 23 5909239 Problem 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 Active confirmed 248890583 Problem Essential hypertension I10 Active confirmed 00134993 ALLERGIES Allergen (clinical drug ingredient) Drug/Non Drug Allergy do cumented on EMR Reaction Allergy Type Onset Date Status oxycodone Oxycodone Confusion Drug Allergy Active ENCOUNTERS from 1963 to 2021-03-22 Encounter Location Date Provider Diagnosis [facility] Valentín [address] [phone] [place] [address] Mar, 2021 Nicol Fontenot Pain, dental K08.89 IMMUNIZATIONS No Information SOCIAL HISTORY Tobacco Use: Social History Observation Description Date Details (start date - stop date) Current Smoker Sex Assigned At : Social History Observation Description Sex Assigned At Unknown Education: Question Answer Notes Level of Education: College Audit Question Answer Notes Total Score: 4 Interpretation: Alcohol Education Language: Question Answer Notes Languages spoken: Sami Sexual Hx: Question Answer Notes Had sex [...] tablet Orally D50.9 Once a day Unknown Lisinopril 2.5 MG 1 tablet Orally Once a day for 90 Unknown Xanax 0.5 MG 1 tablet Orally Twice a day prn MDD 2 for 30 Days Mar, Active Nicotine 21 MG/24HR 1 patch to skin Transdermal Once a day Unknown Acetaminophen-Codeine #3 300-30 MG 1 tablet as needed Orally every 6 hrs, MDD=4 for 7 day(s) Mar, Active Aspirin 81 MG 1 tablet Orally Once a day Unknown Amoxicillin-Pot Clavulanate 875-125 MG 1 tablet Orally every 12 hrs for 10 day(s) Feb, Not-Taking Aspirin 81 MG as directed Orally Feb, A ctive Atorvastatin Calcium 40 MG 1 tablet Orally Once a day Active PROCEDURES No Information RESULTS No Results REASON FOR VISIT Refill - T3 MEDICAL (GENERAL) HISTORY Type Description Date Medical History ANXIETY with Panic Medical History Diverticulosis Medical History PAD: Dr. Jackson Medical History PVD Medical History HYPERTENSION Medical History ERECTILE DYSFUNCTION Surgical History Tonsillectomy/Adnoidectomy AGE 2 Surgical History Angioplasty 10/2017 Surgical History aortobifem bypass d/t bilate ral claudication and aortoiliac occlusive disease 11/2018 Hospitalization History [facility] 11/27/2018- 019 Goals Section No Information Health Concerns No Information MEDICAL EQUIPMENT No Information MENTAL STATUS No Information FUNCTIONAL STATUS No Information ASSESSMENTS Encounter Date Diagnosis Assessment Notes Treatment Notes Treatm ent Clinical Notes Mar, Pain, dental (ICD-10 - K08.89) PLAN OF TREATMENT Medication Medication Name Sig Start Date Stop Date Atorvastatin Calcium 40 MG 1 tablet Orally Once a day Aspirin 81 MG as directed Orally Feb, Acetaminophen-Codeine #3 300-30 MG 1 tablet as needed Orally every 6 hrs, MDD=4 for 7 day(s) Mar, Xanax 0.5 MG 1 tablet Orally Twice a day prn MDD 2 for 30 Day s Mar, Insurance Providers Payer Name Payer Address Payer Phone Insured Name Patient Relati onship to Insured Coverage Start Date Coverage End Date [facility] CORPORATE CLAIMS DEPT [address] [place] [phone] HAIR FARRIS self
--- OUTSIDE RECORDS SUMMARY | 2021-04-06 13:51 | CCD ---
Author Author [facility] Organization [facility] Address Unknown Phone Unavailable Care Team Providers Care Client Renewal Specialist Name Role Phone Nicol Fontenot Unavailable PROBLEMS Type Condition ICD9-CM Code GLZ72-EM Code Onset Dates Condition S tatus W/U Status Risk SNOMED Code Notes Problem Nicotine dependence, unspecified, uncomplicated F1 7.200 Active confirmed 889297633 Problem Elevated blood-pressure reading, without diagnos is of hypertension R03.0 Active confirmed 805874684 Problem Hyperlipidemia, unspecified hyperlipidemia type E7 8.5 Active confirmed 07981770 Problem Erectile dysfunction, unspecified erectile dysfunction typ e N52.9 Active confirmed 063749272 Problem 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 Active confirmed 466338754 Problem Anxiety disorder, unspecified F41.9 Active confirm ed 874493528 Problem Essential hypertension I10 Active confirmed 14143409 Problem Claudication I73.9 Active confirmed 3138543 00 Problem Sinusitis, unspecified chronicity, unspecified location J32.9 Active confirmed 51094813 Problem Diverticulitis of large inte jaylon without perforation or abscess without bleeding K57.32 Active confirmed 1855740 Problem Peripheral vascular disease I73.9 Active confirmed 779076242 Problem Microcytic anemia D50.9 Active confirmed 23 8232652 ALLERGIES Allergen (clinical drug ingredient) Drug/Non Drug Allergy do cumented on EMR Reaction Allergy Type Onset Date Status [place] confusion Drug Allergy Active ENCOUNTERS from 1965 to 2021-02-25 Encounter Location Date Provider Diagnosis [facility] [address] [phone] [place] [address] Feb, Nicol Fontenot IMMUNIZATIONS No Information SOCIAL HISTORY Tobacco Use: Social History Observation Description Date Details (start date - stop date) Current Smoker Sex Assigned At : Social History Observation Description Sex Assigned At Unknown Education: Question Answer Notes Level of Education: College Audit Question Answer Notes Total Score: 9 Interpretation: Simple Advice Language: Question Answer Notes Languages spoken: Kazakh Sexual Hx: Question Answer Notes Had sex [...] and aortoiliac occlusive disease 11/2018 Hospitalization History [facility] 11/27/2018- 019 Goals Section No Information [...] Details Provider Name:Nicol Fontenot, 2020-03-08 04:00:00 PM, [address] , , [place], [address], Insurance Providers Payer Name Payer Address Payer Phone Insured Name Patient Relati onship to Insured Coverage Start Date Coverage End Date [facility] CLAIMS DEPT [address] [facility] [phone] [place] self
--- OUTSIDE RECORDS SUMMARY | 2021-04-06 13:51 | CCD ---
Author Author [facility] Organization [facility] Address Unknown Phone Unavailable Care Team Providers Care Meal Packer Name Role Phone Nicol Fontenot Unavailable PROBLEMS Type Condition ICD9-CM Code BZB28-LD Code Onset Dates Condition S tatus W/U Status Risk SNOMED Code Notes Problem Erectile dysfunction, unspecified erectile dysfunction typ e N52.9 Active confirmed 645102138 Problem Nicotine dependence, unspecified, uncomplicated F1 7.200 Active confirmed 042121183 Problem Anxiety disorder, unspecified F41.9 Active confirm ed 285191547 Problem Hyperlipidemia, unspecified hyperlipidemia type E7 8.5 Active confirmed 16136188 Problem Sinusitis, unspecified chronicity, unspecified location J32.9 Active confirmed 16249832 Problem Diverticulitis of large inte jaylon without perforation or abscess without bleeding K57.32 Active confirmed 8294754 Problem Cigarette nicotine dependence without complication F17.210 Active confirmed 83814206 Problem Claudication I73.9 Active confirmed 2843561 00 Problem PAD (peripheral artery disease) I73.9 Active confi rmed 948860913 Problem Elevated blood-pressure reading, without diagnos is of hypertension R03.0 Active confirmed 737852920 Problem Peripheral vascular disease I73.9 Active confirmed 118395085 Problem Microcytic anemia D50.9 Active confirmed 23 3732649 Problem 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 Active confirmed 073015212 Problem Essential hypertension I10 Active confirmed 02631592 ALLERGIES Allergen (clinical drug ingredient) Drug/Non Drug Allergy do cumented on EMR Reaction Allergy Type Onset Date Status oxycodone Oxycodone Confusion Drug Allergy Active ENCOUNTERS from 1965 to 2021-03-15 Encounter Location Date Provider Diagnosis [facility] [address] [phone] [place] [address] Mar, Nicoljaylon Mccallumry IMMUNIZATIONS No Information SOCIAL HISTORY Tobacco Use: Social History Observation Description Date Details (start date - stop date) Current Smoker Sex Assigned At : Social History Observation Description Sex Assigned At Unknown Education: Question Answer Notes Level of Education: College Audit Question Answer Notes Total Score: 4 Interpretation: Alcohol Education Language: Question Answer Notes Languages spoken: Korean Sexual Hx: Question Answer Notes Had sex [...] MDD 2 for 30 Days Mar, Active Nitroglycerin 0.4 MG as directed Sublingual [...] and aortoiliac occlusive disease 11/2018 Hospitalization History [facility] 11/27/2018- 019 Goals Section No Information Health Concerns No Information MEDICAL EQUIPMENT No Information MENTAL STATUS No Information FUNCTIONAL STATUS No Information ASSESSMENTS No Information PLAN OF TREATMENT Medication Medication Name Sig Start Date Stop Date Atorvastatin Calcium 40 MG 1 tablet Orally Once a day Aspirin 81 MG as directed Orally Feb, Xanax 0.5 MG 1 tablet Orally Twice a day prn MDD 2 for 30 Day s Mar, Insurance Providers Payer Name Payer Address Payer Phone Insured Name Patient Relati onship to Insured Coverage Start Date Coverage End Date [facility] CLAIMS DEPT [address] [place] [phone] HAIR [place] self
--- OUTSIDE RECORDS SUMMARY | 2021-04-06 13:51 | CCD ---
Author Author [facility] Organization [facility] Address Unknown Phone Unavailable Care Team Providers Care Finisher Accordion Name Role Phone GlencoeAurora mehtatt Unavailable PROBLEMS Type Condition ICD9-CM Code HZZ28-VH Code Onset Dates Condition S tatus W/U Status Risk SNOMED Code Notes Problem Nicotine dependence, unspecified, uncomplicated F1 7.200 Active confirmed 760014312 Problem Elevated blood-pressure reading, without diagnos is of hypertension R03.0 Active confirmed 319958039 Problem Hyperlipidemia, unspecified hyperlipidemia type E7 8.5 Active confirmed 56445439 Problem Erectile dysfunction, unspecified erectile dysfunction typ e N52.9 Active confirmed 880509659 Problem 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 Active confirmed 721830486 Problem Anxiety disorder, unspecified F41.9 Active confirm ed 465330439 Problem Essential hypertension I10 Active confirmed 49430214 Problem Claudication I73.9 Active confirmed 2358978 00 Problem Sinusitis, unspecified chronicity, unspecified location J32.9 Active confirmed 13207030 Problem Diverticulitis of large inte jaylon without perforation or abscess without bleeding K57.32 Active confirmed 3954890 Problem Peripheral vascular disease I73.9 Active confirmed 199595842 Problem Microcytic anemia D50.9 Active confirmed 23 8026767 ALLERGIES Allergen (clinical drug ingredient) Drug/Non Drug Allergy do cumented on EMR Reaction Allergy Type Onset Date Status [place] confusion Drug Allergy Active ENCOUNTERS from 1965 to 2021-01-28 Encounter Location Date Provider Diagnosis [facility] [address] [phone] [place] [address] Jan, Albert Armenta Pain, dental K08.89 IMMUNIZATIONS No Information SOCIAL HISTORY Tobacco Use: Social History Observation Description Date Details (start date - stop date) Current Smoker Sex Assigned At : Social History Observation Description Sex Assigned At Unknown Education: Question Answer Notes Level of Education: College Audit Question Answer Notes Total Score: 9 Interpretation: Simple Advice Language: Question Answer Notes Languages spoken: Luxembourgish Sexual Hx: Question Answer Notes Had sex [...] Information RESULTS No Results REASON FOR VISIT rx renewal MEDICAL (GENERAL) HISTORY Type Description Date Medical History ANXIETY Medical History PANIC ATTACKS Medical History ERECTILE DYSFUNCTION Medical History DIVERTICULAR DISEASE Medical History PAD Medical History PVD Medical History HYPERTENSION Surgical History t & a AGE 2 Surgical History Angioplasty 10/2017 Surgical History aortobifem and right femoral d/t bilateral claudication and aortoiliac occlusive disease 11/2018 Hospitalization History [facility] 11/27/2018- 019 Goals Section No Information [...] 03-08 04:00:00 PM, [address] , , [place], [address], Insurance Providers Payer Name Payer Address Payer Phone Insured Name Patient Relati onship to Insured Coverage Start Date Coverage End Date [facility] CLAIMS DEPT [address] [facility] [phone] [place] [place] self
--- OUTSIDE RECORDS SUMMARY | 2021-04-06 13:51 | CCD ---
Author Author [facility] Organization [facility] Address Unknown Phone Unavailable Care Team Providers Care Senior Premium Auditor Name Role Phone Nicol Fontenot Unavailable PROBLEMS Type Condition ICD9-CM Code XJR90-CK Code Onset Dates Condition S tatus W/U Status Risk SNOMED Code Notes Problem Nicotine dependence, unspecified, uncomplicated F1 7.200 Active confirmed 133148448 Problem Elevated blood-pressure reading, without diagnos is of hypertension R03.0 Active confirmed 891885922 Problem Hyperlipidemia, unspecified hyperlipidemia type E7 8.5 Active confirmed 25895802 Problem Erectile dysfunction, unspecified erectile dysfunction typ e N52.9 Active confirmed 531699213 Problem 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 Active confirmed 612082875 Problem Anxiety disorder, unspecified F41.9 Active confirm ed 313556158 Problem Essential hypertension I10 Active confirmed 24736900 Problem Claudication I73.9 Active confirmed 2417725 00 Problem Sinusitis, unspecified chronicity, unspecified location J32.9 Active confirmed 11044031 Problem Diverticulitis of large inte jaylon without perforation or abscess without bleeding K57.32 Active confirmed 0958150 Problem Peripheral vascular disease I73.9 Active confirmed 227452551 Problem Microcytic anemia D50.9 Active confirmed 23 4039069 ALLERGIES Allergen (clinical drug ingredient) Drug/Non Drug Allergy do cumented on EMR Reaction Allergy Type Onset Date Status [place] confusion Drug Allergy Active ENCOUNTERS from 1965 to 2021-01-10 Encounter Location Date Provider Diagnosis [facility] [address] [phone] [place] [address] Dec, Nicol Fontenot Pain, dental K08.89 IMMUNIZATIONS No Information SOCIAL HISTORY Tobacco Use: Social History Observation Description Date Details (start date - stop date) Current Smoker Sex Assigned At : Social History Observation Description Sex Assigned At Unknown Education: Question Answer Notes Level of Education: College Audit Question Answer Notes Total Score: 9 Interpretation: Simple Advice Language: Question Answer Notes Languages spoken: Jordanian Sexual Hx: Question Answer Notes Had sex [...] Notes Start Da te End Date Status Acetaminophen-Codeine #3 300-30 MG 1 tablet as needed Orally every 6 hrs, MDD=4 for 30 Days Jul, Active Xanax 0.5 MG 1 tablet Orally [...] tablet Orally D50.9 Once a day Unknown Toprol XL 25 MG 1 tablet Orally Once a day for 90 Unknown Cilostazol 100 MG 1 tablet 30 minutes before o r 2 hours after breakfast and dinner Orally Twice a day Unknow n Amoxicillin 500 MG 1 tablet Orally Three times a day for 10 day( s) Sep, Unknown Nicotine 21 MG/24HR 1 patch to skin Transdermal Once a day Unknown Nitroglycerin 0.4 MG as directed Sublingual Unknown PROCEDURES No Information RESULTS No Results REASON FOR VISIT prior auth MEDICAL (GENERAL) HISTORY Type Description Date Medical History ANXIETY Medical History PANIC ATTACKS Medical History ERECTILE DYSFUNCTION Medical History DIVERTICULAR DISEASE Medical History PAD Medical History PVD Medical History HYPERTENSION Surgical History t & a AGE 2 Surgical History Angioplasty 10/2017 Surgical History aortobifem and right femoral d/t bilateral claudication and aortoiliac occlusive disease 11/2018 Hospitalization History [facility] 11/27/2018- 019 Goals Section No Information Health Concerns No Information MEDICAL EQUIPMENT No Information MENTAL STATUS No Information FUNCTIONAL STATUS No Information ASSESSMENTS Encounter Date Diagnosis Assessment Notes Treatment Notes Treatm ent Clinical Notes Dec, Pain, dental (ICD-10 - K08.89) PLAN OF TREATMENT Medication Medication Name Sig Start Date Stop Date Xanax 0.5 MG 1 tablet Orally four times daily as need ed MDD=4 for 30 Days Feb, Acetaminophen-Codeine #3 300-30 MG 1 tablet as needed Orally every 6 hrs, MDD=4 for 30 Days Jul, Next Appt Details Provider Name:Nicol Fontenot, 03-08 04:00:00 PM, [address] , , [place], [address], Insurance Providers Payer Name Payer Address Payer Phone Insured Name Patient Relati onship to Insured Coverage Start Date Coverage End Date [facility] CLAIMS DEPT [address] [facility] [phone] [place] self
--- OUTSIDE RECORDS SUMMARY | 2021-04-06 13:51 | CCD ---
Author Author [facility] Organization [facility] Address Unknown Phone Unavailable Care Team Providers Care Bodily Injury Adjuster Name Role Phone Nicol Fontenot Unavailable PROBLEMS Type Condition ICD9-CM Code UCD46-PT Code Onset Dates Condition S tatus W/U Status Risk SNOMED Code Notes Problem Nicotine dependence, unspecified, uncomplicated F1 7.200 Active confirmed 625753891 Problem Elevated blood-pressure reading, without diagnos is of hypertension R03.0 Active confirmed 282185088 Problem Hyperlipidemia, unspecified hyperlipidemia type E7 8.5 Active confirmed 09799720 Problem Erectile dysfunction, unspecified erectile dysfunction typ e N52.9 Active confirmed 561612988 Problem 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 Active confirmed 526978125 Problem Anxiety disorder, unspecified F41.9 Active confirm ed 894026209 Problem Essential hypertension I10 Active confirmed 23957744 Problem Claudication I73.9 Active confirmed 5816669 00 Problem Sinusitis, unspecified chronicity, unspecified location J32.9 Active confirmed 72974997 Problem Diverticulitis of large inte jaylon without perforation or abscess without bleeding K57.32 Active confirmed 5558762 Problem Peripheral vascular disease I73.9 Active confirmed 170625805 Problem Microcytic anemia D50.9 Active confirmed 23 6479954 ALLERGIES Allergen (clinical drug ingredient) Drug/Non Drug Allergy do cumented on EMR Reaction Allergy Type Onset Date Status [place] confusion Drug Allergy Active ENCOUNTERS from 1965 to 2021-02-02 Encounter Location Date Provider Diagnosis [facility] [address] [phone] [place] [address] Jan, Nicol Fontenot IMMUNIZATIONS No Information SOCIAL HISTORY Tobacco Use: Social History Observation Description Date Details (start date - stop date) Current Smoker Sex Assigned At : Social History Observation Description Sex Assigned At Unknown Education: Question Answer Notes Level of Education: College Audit Question Answer Notes Total Score: 9 Interpretation: Simple Advice Language: Question Answer Notes Languages spoken: Kyrgyz Sexual Hx: Question Answer Notes Had sex [...] Notes Start Da te End Date Status Xanax 0.5 MG 1 tablet Orally four times daily as needed MDD=4 for 30 Days Jan, Active Nitroglycerin 0.4 MG as directed Sublingual Unknown Multivitamin Adults - Orally Unk nown Ferrous [...] Orally Once a day for 90 Unknown Atorvastatin Calcium 40 MG 1 tablet Orally [...] and aortoiliac occlusive disease 11/2018 Hospitalization History [facility] 11/27/2018- 019 Goals Section No Information Health Concerns No Information MEDICAL EQUIPMENT No Information MENTAL STATUS No Information FUNCTIONAL STATUS No Information ASSESSMENTS No Information PLAN OF TREATMENT Medication Medication Name Sig Start Date Stop Date Acetaminophen-Codeine #3 300-30 MG 1 tablet as needed Orally every 6 hrs, MDD=4 for 7 day(s) Jan, Xanax 0.5 MG 1 tablet Orally four times daily as need ed MDD=4 for 30 Days Jan, Cilostazol 100 MG 1 tablet 30 minutes before o r 2 hours after breakfast and dinner Orally once a day for 30 Days Next Appt Details Provider Name:Nicol Fontenot, 03-08 04:00:00 PM, [address] , , [place], [address], Insurance Providers Payer Name Payer Address Payer Phone Insured Name Patient Relati onship to Insured Coverage Start Date Coverage End Date [facility] CLAIMS DEPT [address] [facility] [phone] HAIR FARRIS
[2021-04-06] MEDS ORDERED: HYDR-3363 (13:52)
[2021-04-06] MEDS ORDERED: ALPR0.5T3 (13:52)
[2021-04-06] MEDS ORDERED: LISI2.5T9 (13:52)
[2021-04-06] MEDS ORDERED: ATOR40TA75 (13:52)
[2021-04-06] MEDS ORDERED: ACET1TAB16 (13:52)
--- OUTSIDE RECORDS SUMMARY | 2021-04-06 13:52 | CCD ---
Author Author [facility] Organization [facility] Address Unknown Phone Unavailable Care Team Providers Care Charge Auditor Name Role Phone Yulissa PIÑA MD Unavailable Unavailable Yulissa PIÑA MD Unavailable Unavailable Yulissa PIÑA MD Unavailable Unavailable Yulissa PIÑA MD Unavailable Unavailable Yulissa PIÑA MD Unavailable Unavailable Yulissa PIÑA MD Unavailable Unavailable Yulissa PIÑA MD Unavailable Unavailable Yulissa PIÑA MD Unavailable Unavailable Yulissa PIÑA MD Unavailable Unavailable Yulissa PIÑA MD Unavailable Unavailable Yulissa PIÑA MD Unavailable Unavailable Yulissa PIÑA MD Unavailable Unavailable Yulissa PIÑA MD Unavailable Unavailable Yulissa PIÑA MD Unavailable Unavailable Yulissa PIÑA MD Unavailable Unavailable Yulissa PIÑA MD Unavailable Unavailable Yulissa PIÑA MD Unavailable Unavailable Yulissa PIÑA MD Unavailable Unavailable Yulissa PIÑA MD Unavailable Unavailable Yulissa PIÑA MD Unavailable Unavailable Yulissa PIÑA MD Unavailable Unavailable Yulissa PIÑA MD Unavailable Unavailable AYANAYulissa MD Unavailable Unavailable AYANAYulissa MD Unavailable Unavailable AYANAYulissa MD Unavailable Unavailable AYANAYulissa MD Unavailable Unavailable AYANAYulissa MD Unavailable Unavailable AYANAYulissa MD Unavailable Unavailable AYANAYulissa MD Unavailable Unavailable AYANAYulissa MD Unavailable Unavailable AYANA, Yulissa MCKEON MD Unavailable Unavailable AYANAYulissa MD Unavailable Unavailable AYANAYulissa MD Unavailable Unavailable AYANAYulissa MD Unavailable Unavailable AYANAYulissa MD Unavailable Unavailable AYANA, VIJAY MD Unavailable Unavailable AYANAYulissa MD Unavailable Unavailable AYANA, Yulissa MCKEON MD Unavailable Unavailable AYANA, Yulissa MCKEON MD Unavailable Unavailable AYANAYulissa MD Unavailable Unavailable AYANAYulissa MD Unavailable Unavailable AYANAYulissa MD Unavailable Unavailable AYANA, Yulissa MCKEON MD Unavailable Unavailable AYANAYulissa MD Unavailable Unavailable AYANAYulissa MD Unavailable Unavailable AYANAYulissa MD Unavailable Unavailable AYANAYulissa MD Unavailable Unavailable AYANAYulissa MD Unavailable Unavailable AYANAYulissa MD Unavailable Unavailable AYANAYulissa MD Unavailable Unavailable AYANAYulissa MD Unavailable Unavailable AYANAYulissa MD Unavailable Unavailable AYANAYulissa MD Unavailable Unavailable AYANAYulissa MD Unavailable Unavailable AYANAYulissa MD Unavailable Unavailable AYANAYulissa MD Unavailable Unavailable AYANAYulissa MD Unavailable Unavailable AYANAYulissa MD Unavailable Unavailable AYANAYulissa MD Unavailable Unavailable AYANAYulissa MD Unavailable Unavailable AYANAYulissa MD Unavailable Unavailable AYANAYulissa MD Unavailable Unavailable AYANAYulissa MD Unavailable Unavailable AYANAYulissa MD Unavailable Unavailable AYANAYulissa MD Unavailable Unavailable Re-disclosure Warning The records that you are about to access may contain information from federally-assisted alcohol or drug abuse programs. If such information is present, then the following federally mandated warning applies: This information has been disclosed to you from records protected by federal confidentiality rules (42 CFR part 2). The federal rules prohibit you from making any further disclosure of this information unless further disclosure is expressly permitted by the written consent of the person to whom it pertains or as otherwise permitted by 42 CFR part 2. A general authorization for the release of medical or other information is NOT sufficient for this purpose. The Federal rules restrict any use of the information to criminally investigate or prosecute any alcohol or drug abuse patient.The records that you are about to access may contain highly sensitive health information, the redisclosure of which is protected by Article 27-F of the [facility] Public Health law. If you continue you may have access to information: Regarding HIV / AIDS; Provided by facilities licensed or operated by the [facility] Office of Mental Health; or Provided by the [facility] Office for People With Developmental Disabilities. If such information is present, then the following [facility] mandated warning applies: This information has been disclosed to you from confidential records which are protected by state law. State law prohibits you from making any further disclosure of this information without the specific written consent of the person to whom it pertains, or as otherwise permitted by law. Any unauthorized further disclosure in violation of state law may result in a fine or penitentiary sentence or both. A general authorization for the release of medical or other information is NOT sufficient authorization for further disc losure. Family History Family Member Name Family Member Gender Family Member Status Date o f Status Description Data Source(s) Unknown Male Problem MEDENT ([facility]) Unknown Male Problem [facility] ) () Encounters Encounter Providers Location Date Indications Data Source(s ) Unknown [address] [facility] [place] [address] 04/04/2021 12:00:00 AM EDT eCW1 ([facility]) Unknown [address] [facility] [place] [address] 03/30/2021 12:00:00 AM EDT eCW1 ([facility]) Unknown [address] [facility] [place] [address] 03/21/2021 12:00:00 AM EDT eCW1 ([facility]) Unknown [address] [facility] [place] [address] 03/14/2021 12:00:00 AM EDT eCW1 ([facility]) Outpatient [address] [facility] [place] [address] 03/08/2021 12:00:00 AM EDT eCW1 ([facility]) [place] [address] [facility] [place] [address] 03/01/2021 12:00:00 AM EDT eCW1 ([facility]) [place] [address] [facility] [place] [address] 02/25/2021 12:00:00 AM EDT eCW1 ([facility]) Unknown [address] [facility] [place] [address] 02/25/2021 12:00:00 AM EDT eCW1 ([facility]) [place] [address] [facility] [place] [address] 02/23/2021 12:00:00 AM EDT eCW1 ([facility]) Unknown [address] [facility] [place] [address] 01/31/2021 12:00:00 AM EDT eCW1 ([facility]) Unknown [address] [facility] [place] [address] 01/28/2021 12:00:00 AM EDT eCW1 ([facility]) Unknown [address] [facility] [place] [address] 01/28/2021 12:00:00 AM EDT eCW1 ([facility]) Unknown [address] [facility] [place] [address] 01/06/2021 12:00:00 AM EDT eCW1 ([facility]) Unknown [address] [facility] [place] [address] 01/03/2021 12:00:00 AM EDT eCW1 ([facility]) Unknown [address] [facility] [place] [address] 12/29/2020 12:00:00 AM EDT eCW1 ([facility]) Unknown [address] [facility] [place] [address] 11/30/2020 12:00:00 AM EDT eCW1 ([facility]) Unknown [address] [facility] [place] [address] 10/28/2020 12:00:00 AM EDT eCW1 ([facility]) Unknown [address] [facility] [place] [address] 10/21/2020 12:00:00 AM EDT eCW1 ([facility]) Unknown [address] [facility] [place] [address] 10/19/2020 12:00:00 AM EDT eCW1 ([facility]) Unknown [address] [facility] [place] [address] 09/30/2020 12:00:00 AM EDT eCW1 ([facility]) Unknown [address] [facility] [place] [address] 09/30/2020 12:00:00 AM EDT eCW1 ([facility]) Unknown [address] [facility] [place] [address] 08/31/2020 12:00:00 AM EDT eCW1 ([facility]) Unknown [address] [facility] [place] [address] 08/26/2020 12:00:00 AM EDT eCW1 ([facility]) Unknown [address] [facility] [place] [address] 08/20/2020 12:00:00 AM EST eCW1 ([facility]) Outpatient [address] [facility] [place] [address] 07/30/2020 12:00:00 AM EST eCW1 ([facility]) Unknown [address] [facility] [place] [address] 06/29/2020 12:00:00 AM EST eCW1 ([facility]) Unknown [address] [facility] [place] [address] 06/25/2020 12:00:00 AM EST eCW1 ([facility]) Unknown [address] [facility] [place] [address] 05/26/2020 12:00:00 AM EST eCW1 ([facility]) Unknown [address] [facility] [place] [address] 04/26/2020 12:00:00 AM EST eCW1 ([facility]) Unknown [address] [facility] [place] [address] 04/08/2020 12:00:00 AM EDT eCW1 ([facility]) Unknown [address] [facility] [place] [address] 03/24/2020 12:00:00 AM EDT eCW1 ([facility]) Unknown [address] [facility] [place] [address] 03/11/2020 12:00:00 AM EDT eCW1 ([facility]) Unknown [address] [facility] [place] [address] 03/11/2020 12:00:00 AM EDT eCW1 ([facility]) Unknown [address] [facility] [place] [address] 03/10/2020 12:00:00 AM EDT eCW1 ([facility]) Outpatient Attender: LINDA PIÑA MD 02/24/2020 12:00: 00 AM [facility] Immunizations Vaccine Date Status Description Data Source(s) COVID-19 VACCINE Moderna 10/05/2020 12:00:00 AM EDT completed [facility] Vaccine Series Complete: YESThis Data wa s Submitted to [facility] Via [employer]. COVID-19 VACCINE Moderna 08/29/2020 12:00:00 AM EDT completed [facility] Vaccine Series Complete: NOThis Data was Submitted to [facility] Via [employer]. COVID-19 VACCINE, MRNA-[id number], LNP-S (MODERNA)/PF 08/29/2020 1 2:00:00 AM EDT completed [facility] Medications Medication Brand Name Start Date Product Form Dose Route Admi nistrative Instructions Pharmacy Instructions Status Indications Reaction Description Data Source(s) Alprazolam 0.5 MG Oral Tablet [Xanax] Xanax 0.5 MG Xanax 0.5 MG 04/04/2021 12:00:00 AM EDT 1.0 {tablet} active Xa nax 0.5 MG eCW1 ([facility]) Alprazolam 0.5 MG Oral Tablet [Xanax] Xanax 0.5 MG Xanax 0.5 MG 04/04/2021 12:00:00 AM EDT 1.0 {tablet} active Xa nax 0.5 MG eCW1 ([facility]) Acetaminophen 300 MG / Codeine Phosphate 30 MG Oral Tablet Acetaminophen-Codeine #3 300-30 MG Acetaminophen-Codeine #3 300-30 MG 03/21/2021 12:00:00 AM EDT 1.0 {tablet_as_needed} active Acetamino phen-Codeine #3 300-30 MG eCW1 ([facility]) Acetaminophen 300 MG / Codeine Phosphate 30 MG Oral Tablet Acetaminophen-Codeine #3 300-30 MG Acetaminophen-Codeine #3 300-30 MG 03/21/2021 12:00:00 AM EDT 1.0 {tablet_as_needed} active Acetamino phen-Codeine #3 300-30 MG eCW1 ([facility]) Acetaminophen 300 MG / Codeine Phosphate 30 MG Oral Ta blet 300-30 mg ACETAMINOPHEN WITH CODEINE 03/21/2021 12:00:00 AM EDT tablet 28 TAKE ONE TABLET BY MOUTH EVERY 6 HOURS NEEDED MAXIMUM DAILY DOSE = 4 TABLETS TAKE ONE TABLET BY MOUTH EVERY 6 HOURS NEEDED MAXIMUM DAILY DOSE = 4 TABLETS SOLD: 03/22/2021 [facility] Acetaminophen 300 MG / Codeine Phosphate 30 MG Oral Tablet Acetaminophen-Codeine #3 300-30 MG Acetaminophen-Codeine #3 300-30 MG 03/21/2021 12:00:00 AM EDT 1.0 {tablet_as_needed} active Acetamino phen-Codeine #3 300-30 MG eCW1 ([facility]) Alprazolam 0.5 MG Oral Tablet [Xanax] Xanax 0.5 MG Xanax 0.5 MG 03/15/2021 12:00:00 AM EDT 1.0 {tablet} active Xa nax 0.5 MG eCW1 ([facility]) 0.5 mg 03/15/2021 12:00:00 AM EDT tablet 60 TAKE ONE TABLET BY MOUTH TWICE A DAY NEEDED MAXIMUM DAILY DOSE = 2 TABLETS TAKE ONE TABLET BY MOUTH TWICE A DAY NEEDED MAXIMUM DAILY DOSE = 2 TABLETS SOLD: 03/19/2021 [facility] Alprazolam 0.5 MG Oral Tablet [Xanax] Xanax 0.5 MG Xanax 0.5 MG 03/15/2021 12:00:00 AM EDT 1.0 {tablet} active Xa nax 0.5 MG eCW1 ([facility]) Aspirin 81 MG UNK 03/08/2021 12:00:00 AM EDT acti ve Aspirin 81 MG eCW1 ([facility]) Aspirin 81 MG UNK 03/08/2021 12:00:00 AM EDT acti ve Aspirin 81 MG eCW1 ([facility]) Aspirin 81 MG UNK 03/08/2021 12:00:00 AM EDT acti ve Aspirin 81 MG eCW1 ([facility]) Aspirin 81 MG UNK 03/08/2021 12:00:00 AM EDT acti ve Aspirin 81 MG eCW1 ([facility]) Aspirin 81 MG UNK 03/08/2021 12:00:00 AM EDT acti ve Aspirin 81 MG eCW1 ([facility]) Acetaminophen 300 MG / Codeine Phosphate 30 MG Oral Tablet Acetaminophen-Codeine #3 300-30 MG Acetaminophen-Codeine #3 300-30 MG 03/01/2021 12:00:00 AM EDT 1.0 {tablet_as_needed} active Acetamino phen-Codeine #3 300-30 MG eCW1 ([facility]) Acetaminophen 300 MG / Codeine Phosphate 30 MG Oral Ta blet 300-30 mg ACETAMINOPHEN WITH CODEINE 03/01/2021 12:00:00 AM EDT tablet 28 TAKE ONE TABLET BY MOUTH EVERY 6 HOURS NEEDED MAXIMUM DAILY DOSE = 4 TABLETS TAKE ONE TABLET BY MOUTH EVERY 6 HOURS NEEDED MAXIMUM DAILY DOSE = 4 TABLETS SOLD: 03/01/2021 [facility] Acetaminophen 300 MG / Codeine Phosphate 30 MG Oral Tablet Acetaminophen-Codeine #3 300-30 MG Acetaminophen-Codeine #3 300-30 MG 03/01/2021 12:00:00 AM EDT 1.0 {tablet_as_needed} active Acetamino phen-Codeine #3 300-30 MG eCW1 ([facility]) Acetaminophen 300 MG / Codeine Phosphate 30 MG Oral Tablet Acetaminophen-Codeine #3 300-30 MG Acetaminophen-Codeine #3 300-30 MG 03/01/2021 12:00:00 AM EDT 1.0 {tablet_as_needed} active Acetamino phen-Codeine #3 300-30 MG eCW1 ([facility]) Amoxicillin 875 MG / Clavulanate 125 MG Oral Tablet Amoxicillin-Pot Clavulanate 875-125 MG Amoxicillin-Pot Clavulanate 875-125 MG 02/25/2021 12:00:00 AM ED T 1.0 {tablet} suspended Amoxicillin-Pot C lavulanate 875-125 MG eCW1 ([facility]) Amoxicillin 875 MG / Clavulanate 125 MG Oral Tablet Amoxicillin-Pot Clavulanate 875-125 MG Amoxicillin-Pot Clavulanate 875-125 MG 02/25/2021 12:00:00 AM ED T 1.0 {tablet} active Amoxicillin-Pot Cla vulanate 875-125 MG eCW1 ([facility]) Amoxicillin 875 MG / Clavulanate 125 MG Oral Tablet Amoxicillin-Pot Clavulanate 875-125 MG Amoxicillin-Pot Clavulanate 875-125 MG 02/25/2021 12:00:00 AM ED T 1.0 {tablet} suspended Amoxicillin-Pot C lavulanate 875-125 MG eCW1 ([facility]) Amoxicillin 875 MG / Clavulanate 125 MG Oral Tablet Amoxicillin-Pot Clavulanate 875-125 MG Amoxicillin-Pot Clavulanate 875-125 MG 02/25/2021 12:00:00 AM ED T 1.0 {tablet} active Amoxicillin-Pot Cla vulanate 875-125 MG eCW1 ([facility]) Amoxicillin 875 MG / Clavulanate 125 MG Oral Tablet Amoxicillin-Pot Clavulanate 875-125 MG Amoxicillin-Pot Clavulanate 875-125 MG 02/25/2021 12:00:00 AM ED T 1.0 {tablet} suspended Amoxicillin-Pot C lavulanate 875-125 MG eCW1 ([facility]) Amoxicillin 875 MG / Clavulanate 125 MG Oral Tablet Amoxicillin-Pot Clavulanate 875-125 MG Amoxicillin-Pot Clavulanate 875-125 MG 02/25/2021 12:00:00 AM ED T 1.0 {tablet} suspended Amoxicillin-Pot C lavulanate 875-125 MG eCW1 ([facility]) Amoxicillin 875 MG / Clavulanate 125 MG Oral Tablet Amoxicillin-Pot Clavulanate 875-125 MG Amoxicillin-Pot Clavulanate 875-125 MG 02/25/2021 12:00:00 AM ED T 1.0 {tablet} active Amoxicillin-Pot Cla vulanate 875-125 MG eCW1 ([facility]) Amoxicillin 875 MG / Clavulanate 125 MG Oral Tablet Amoxicillin-Pot Clavulanate 875-125 MG Amoxicillin-Pot Clavulanate 875-125 MG 02/25/2021 12:00:00 AM ED T 1.0 {tablet} suspended Amoxicillin-Pot C lavulanate 875-125 MG eCW1 ([facility]) atorvastatin 40 MG Oral Tablet ATORVASTATIN CALCIUM 02/24/2021 1 2:00:00 AM EDT tablet 30 TAKE ONE TABLET BY MOUTH EVERY D AY TAKE ONE TABLET BY MOUTH EVERY DAY SOLD: 03/29/2021 [facility] atorvastatin 40 MG Oral Tablet ATORVASTATIN CALCIUM 02/24/2021 1 2:00:00 AM EDT tablet 30 TAKE ONE TABLET BY MOUTH EVERY D AY TAKE ONE TABLET BY MOUTH EVERY DAY SOLD: 02/28/2021 [facility] Alprazolam 0.5 MG Oral Tablet [Xanax] Xanax 0.5 MG Xanax 0.5 MG 02/01/2021 12:00:00 AM EDT 1.0 {tablet} active Xa nax 0.5 MG eCW1 ([facility]) 0.5 mg 02/01/2021 12:00:00 AM EDT tablet 120 TAKE ONE TABLET BY MOUTH FOUR TIMES A DAY NEEDED MAXIMUM DAILY DOSE = 4 TABLETS TAKE ONE TABLET BY MOUTH FOUR TIMES A DAY NEEDED MAXIMUM DAILY DOSE = 4 TABLETS SOLD: 02/01/2021 [facility] Alprazolam 0.5 MG Oral Tablet [Xanax] Xanax 0.5 MG Xanax 0.5 MG 02/01/2021 12:00:00 AM EDT 1.0 {tablet} active Xa nax 0.5 MG eCW1 ([facility]) Alprazolam 0.5 MG Oral Tablet [Xanax] Xanax 0.5 MG Xanax 0.5 MG 02/01/2021 12:00:00 AM EDT 1.0 {tablet} active Xa nax 0.5 MG eCW1 ([facility]) Alprazolam 0.5 MG Oral Tablet [Xanax] Xanax 0.5 MG Xanax 0.5 MG 02/01/2021 12:00:00 AM EDT 1.0 {tablet} active Xa nax 0.5 MG eCW1 ([facility]) Alprazolam 0.5 MG Oral Tablet [Xanax] Xanax 0.5 MG Xanax 0.5 MG 02/01/2021 12:00:00 AM EDT 1.0 {tablet} active Xa nax 0.5 MG eCW1 ([facility]) Alprazolam 0.5 MG Oral Tablet [Xanax] Xanax 0.5 MG Xanax 0.5 MG 02/01/2021 12:00:00 AM EDT 1.0 {tablet} active Xa nax 0.5 MG eCW1 ([facility]) Acetaminophen 300 MG / Codeine Phosphate 30 MG Oral Tablet Acetaminophen-Codeine #3 300-30 MG Acetaminophen-Codeine #3 300-30 MG 01/28/2021 12:00:00 AM EDT 1.0 {tablet_as_needed} active Acetamino phen-Codeine #3 300-30 MG eCW1 ([facility]) Acetaminophen 300 MG / Codeine Phosphate 30 MG Oral Tablet Acetaminophen-Codeine #3 300-30 MG Acetaminophen-Codeine #3 300-30 MG 01/28/2021 12:00:00 AM EDT 1.0 {tablet_as_needed} active Acetamino phen-Codeine #3 300-30 MG eCW1 ([facility]) Acetaminophen 300 MG / Codeine Phosphate 30 MG Oral Tablet Acetaminophen-Codeine #3 300-30 MG Acetaminophen-Codeine #3 300-30 MG 01/28/2021 12:00:00 AM EDT 1.0 {tablet_as_needed} active Acetamino phen-Codeine #3 300-30 MG eCW1 ([facility]) Acetaminophen 300 MG / Codeine Phosphate 30 MG Oral Ta blet 300-30 mg ACETAMINOPHEN WITH CODEINE 01/28/2021 12:00:00 AM EDT tablet 28 TAKE ONE TABLET BY MOUTH NEEDED EVERY SIX HOURS MAXIMUM DAILY DOSE = FOUR TABLETS TAKE ONE TABLET BY MOUTH NEEDED EVERY SIX HOURS MAXIMUM DAILY DOSE = FOUR TABLETS SOLD: 02/01/2021 [facility] Acetaminophen 300 MG / Codeine Phosphate 30 MG Oral Tablet Acetaminophen-Codeine #3 300-30 MG Acetaminophen-Codeine #3 300-30 MG 01/28/2021 12:00:00 AM EDT 1.0 {tablet_as_needed} active Acetamino phen-Codeine #3 300-30 MG eCW1 ([facility]) Acetaminophen 300 MG / Codeine Phosphate 30 MG Oral Tablet Acetaminophen-Codeine #3 300-30 MG Acetaminophen-Codeine #3 300-30 MG 01/28/2021 12:00:00 AM EDT 1.0 {tablet_as_needed} active Acetamino phen-Codeine #3 300-30 MG eCW1 ([facility]) Acetaminophen 300 MG / Codeine Phosphate 30 MG Oral Tablet Acetaminophen-Codeine #3 300-30 MG Acetaminophen-Codeine #3 300-30 MG 01/28/2021 12:00:00 AM EDT 1.0 {tablet_as_needed} active Acetamino phen-Codeine #3 300-30 MG eCW1 ([facility]) Acetaminophen 300 MG / Codeine Phosphate 30 MG Oral Ta blet 300-30 mg ACETAMINOPHEN WITH CODEINE 01/06/2021 12:00:00 AM EDT tablet 28 TAKE ONE TABLET BY MOUTH EVERY 6 HOURS NEEDED MAX=4TABS/DAY TAKE ONE TABLET BY MOUTH EVERY 6 HOURS NEEDED MAX=4TABS/DAY SOLD: 01/07/2021 [facility] 0.5 mg 12/31/2020 12:00:00 AM EDT tablet 120 TAKE ONE TABLET FOUR TIMES DAILY NEEDED MAXIMUM DAILY DOSE =4 TABLETS TAKE ONE TABLET FOUR TIMES DAILY NEEDED MAXIMUM DAILY DOSE =4 TABLETS SOLD: 01/03/2021 [facility] 0.5 mg 12/01/2020 12:00:00 AM EDT tablet 120 TAKE ONE TABLET BY MOUTH FOUR TIMES A DAY NEEDED MAXIMUM DAILY DOSE = 4 TABLETS TAKE ONE TABLET BY MOUTH FOUR TIMES A DAY NEEDED MAXIMUM DAILY DOSE = 4 TABLETS SOLD: 12/03/2020 [facility] 0.5 mg 11/01/2020 12:00:00 AM EDT tablet 120 TAKE ONE TABLET BY MOUTH FOUR TIMES A DAY NEEDED MAXIMUM DAILY DOSE = 4 TAKE ONE TABLET BY MOUTH FOUR TIMES A DAY NEEDED MAXIMUM DAILY DOSE = 4 SOLD: 11/01/2020 [facility] Acetaminophen 300 MG / Codeine Phosphate 30 MG Oral Ta blet 300-30 mg ACETAMINOPHEN WITH CODEINE 10/22/2020 12:00:00 AM EDT tablet 120 TAKE ONE TABLET BY MOUTH EVERY 6 HOURS NEEDED, MAXIMUM DAILY DOSE = 4 TAKE ONE TABLET BY MOUTH EVERY 6 HOURS NEEDED, MAXIMUM DAILY DOSE = 4 SOLD: 10/22/2020 [facility] 2.5 mg 10/20/2020 12:00:00 AM EDT tablet 30 TAKE ONE TABLET BY MOUTH EVERY DAY TAKE ONE TABLET BY MOUTH EVERY DAY SOLD: 01/21/2021 [facility] 2.5 mg 10/20/2020 12:00:00 AM EDT tablet 30 TAKE ONE TABLET BY MOUTH EVERY DAY TAKE ONE TABLET BY MOUTH EVERY DAY SOLD: 10/22/2020 [facility] 2.5 mg 10/20/2020 12:00:00 AM EDT tablet 30 TAKE ONE TABLET BY MOUTH EVERY DAY TAKE ONE TABLET BY MOUTH EVERY DAY SOLD: 02/22/2021 [facility] 2.5 mg 10/20/2020 12:00:00 AM EDT tablet 30 TAKE ONE TABLET BY MOUTH EVERY DAY TAKE ONE TABLET BY MOUTH EVERY DAY SOLD: 11/23/2020 [facility] 2.5 mg 10/20/2020 12:00:00 AM EDT tablet 30 TAKE ONE TABLET BY MOUTH EVERY DAY TAKE ONE TABLET BY MOUTH EVERY DAY SOLD: 12/21/2020 [facility] 2.5 mg 10/20/2020 12:00:00 AM EDT tablet 30 TAKE ONE TABLET BY MOUTH EVERY DAY TAKE ONE TABLET BY MOUTH EVERY DAY SOLD: 03/22/2021 [facility] 25 mg 10/08/2020 12:00:00 AM EDT tablet extended release 24 hr 90 TAKE ONE TABLET BY MOUTH DAILY TAKE ONE TABLET BY MOUTH DAILY SOLD: 01/10/2021 [facility] 25 mg 10/08/2020 12:00:00 AM EDT tablet extended release 24 hr 90 TAKE ONE TABLET BY MOUTH DAILY TAKE ONE TABLET BY MOUTH DAILY SOLD: 10/11/2020 [facility] 500 mg 09/30/2020 12:00:00 AM EDT tablet 30 TAKE ONE TABLET BY MOUTH THREE TIMES A DAY FOR 10 DAYS TAKE ONE TABLET BY MOUTH THREE TIMES A DAY FOR 10 DAYS SOLD: 09/30/2020 [facility] Amoxicillin 500 MG Oral Tablet Amoxicillin 500 MG 09/30/2020 12:00: 00 AM EDT 1.0 {tablet} active Amoxicillin 500 MG eCW1 ([facility]) Amoxicillin 500 MG Oral Tablet Amoxicillin 500 MG 09/30/2020 12:00: 00 AM EDT 1.0 {tablet} active Amoxicillin 500 MG eCW1 ([facility]) Amoxicillin 500 MG Oral Tablet Amoxicillin 500 MG 09/30/2020 12:00: 00 AM EDT 1.0 {tablet} active Amoxicillin 500 MG eCW1 ([facility]) Alprazolam 0.5 MG Oral Tablet ALPRAZOLAM 09/30/2020 12:00:00 AM EDT t ablet 120 TAKE ONE TABLET BY MOUTH FOUR TIMES A DA Y NEEDED MAXIMUM DAILY DOSE = FOUR TABLETS TAKE ONE TABLET BY MOUTH FOUR TIMES A DA Y NEEDED MAXIMUM DAILY DOSE = FOUR TABLETS SOLD: 09/30/2020 [facility] Amoxicillin 500 MG Oral Tablet Amoxicillin 500 MG 09/30/2020 12:00: 00 AM EDT 1.0 {tablet} active Amoxicillin 500 MG eCW1 ([facility]) Amoxicillin 500 MG Oral Tablet Amoxicillin 500 MG 09/30/2020 12:00: 00 AM EDT 1.0 {tablet} active Amoxicillin 500 MG eCW1 ([facility]) Amoxicillin 500 MG Oral Tablet Amoxicillin 500 MG 09/30/2020 12:00: 00 AM EDT 1.0 {tablet} active Amoxicillin 500 MG eCW1 ([facility]) Amoxicillin 500 MG Oral Tablet Amoxicillin 500 MG 09/30/2020 12:00: 00 AM EDT 1.0 {tablet} active Amoxicillin 500 MG eCW1 ([facility]) Amoxicillin 500 MG Oral Tablet Amoxicillin 500 MG 09/30/2020 12:00: 00 AM EDT 1.0 {tablet} active Amoxicillin 500 MG eCW1 ([facility]) Amoxicillin 500 MG Oral Tablet Amoxicillin 500 MG 09/30/2020 12:00: 00 AM EDT 1.0 {tablet} active Amoxicillin 500 MG eCW1 ([facility]) Amoxicillin 500 MG Oral Tablet Amoxicillin 500 MG 09/30/2020 12:00: 00 AM EDT 1.0 {tablet} active Amoxicillin 500 MG eCW1 ([facility]) Amoxicillin 500 MG Oral Tablet Amoxicillin 500 MG 09/30/2020 12:00: 00 AM EDT 1.0 {tablet} active Amoxicillin 500 MG eCW1 ([facility]) Amoxicillin 500 MG Oral Tablet Amoxicillin 500 MG 09/30/2020 12:00: 00 AM EDT 1.0 {tablet} active Amoxicillin 500 MG eCW1 ([facility] [facility] Am[facility]icillin 500 MG Oral Tablet Amoxicillin 500 MG 09/30/2020 12:00: 00 AM EDT 1.0 {tablet} active Amoxicillin 500 MG eCW1 ([facility]) Amoxicillin 500 MG Oral Tablet Amoxicillin 500 MG 09/30/2020 12:00: 00 AM EDT 1.0 {tablet} active Amoxicillin 500 MG eCW1 ([facility]) Amoxicillin 500 MG Oral Tablet Amoxicillin 500 MG 09/30/2020 12:00: 00 AM EDT 1.0 {tablet} active Amoxicillin 500 MG eCW1 ([facility]) Amoxicillin 500 MG Oral Tablet Amoxicillin 500 MG 09/30/2020 12:00: 00 AM EDT 1.0 {tablet} active Amoxicillin 500 MG eCW1 ([facility]) Amoxicillin 500 MG Oral Tablet Amoxicillin 500 MG 09/30/2020 12:00: 00 AM EDT 1.0 {tablet} active Amoxicillin 500 MG eCW1 ([facility]) Amoxicillin 500 MG Oral Tablet Amoxicillin 500 MG 09/30/2020 12:00: 00 AM EDT 1.0 {tablet} active Amoxicillin 500 MG eCW1 ([facility]) Amoxicillin 500 MG Oral Tablet Amoxicillin 500 MG 09/30/2020 12:00: 00 AM EDT 1.0 {tablet} active Amoxicillin 500 MG eCW1 ([facility]) Amoxicillin 500 MG Oral Tablet Amoxicillin 500 MG 09/30/2020 12:00: 00 AM EDT 1.0 {tablet} active Amoxicillin 500 MG eCW1 ([facility]) Amoxicillin 500 MG Oral Tablet Amoxicillin 500 MG 09/30/2020 12:00: 00 AM EDT 1.0 {tablet} active Amoxicillin 500 MG eCW1 ([facility]) Alprazolam 0.5 MG Oral Tablet ALPRAZOLAM 08/31/2020 12:00:00 AM EDT t ablet 120 TAKE ONE TABLET BY MOUTH FOUR TIMES A DA Y NEEDED MAXIMUM DAILY DOSE = 4 TABLETS TAKE ONE TABLET BY MOUTH FOUR TIMES A DA Y NEEDED MAXIMUM DAILY DOSE = 4 TABLETS SOLD: 09/01/2020 [facility] atorvastatin 40 MG Oral Tablet ATORVASTATIN CALCIUM 08/27/2020 1 2:00:00 AM EDT tablet 30 TAKE ONE TABLET BY MOUTH EVERY D AY TAKE ONE TABLET BY MOUTH EVERY DAY SOLD: 11/23/2020 [facility] atorvastatin 40 MG Oral Tablet ATORVASTATIN CALCIUM 08/27/2020 1 2:00:00 AM EDT tablet 30 TAKE ONE TABLET BY MOUTH EVERY D AY TAKE ONE TABLET BY MOUTH EVERY DAY SOLD: 12/21/2020 [facility] atorvastatin 40 MG Oral Tablet ATORVASTATIN CALCIUM 08/27/2020 1 2:00:00 AM EDT tablet 30 TAKE ONE TABLET BY MOUTH EVERY D AY TAKE ONE TABLET BY MOUTH EVERY DAY SOLD: 08/27/2020 [facility] atorvastatin 40 MG Oral Tablet ATORVASTATIN CALCIUM 08/27/2020 1 2:00:00 AM EDT tablet 30 TAKE ONE TABLET BY MOUTH EVERY D AY TAKE ONE TABLET BY MOUTH EVERY DAY SOLD: 09/26/2020 [facility] atorvastatin 40 MG Oral Tablet ATORVASTATIN CALCIUM 08/27/2020 1 2:00:00 AM EDT tablet 30 TAKE ONE TABLET BY MOUTH EVERY D AY TAKE ONE TABLET BY MOUTH EVERY DAY SOLD: 01/21/2021 [facility] atorvastatin 40 MG Oral Tablet ATORVASTATIN CALCIUM 08/27/2020 1 2:00:00 AM EDT tablet 30 TAKE ONE TABLET BY MOUTH EVERY D AY TAKE ONE TABLET BY MOUTH EVERY DAY SOLD: 10/25/2020 [facility] 300-30 mg 08/20/2020 12:00:00 AM EST tablet 120 TAKE ONE TABLET BY MOUTH EVERY 6 HOURS NEEDED MAXIMUM DAILY DOSE = 4 TABLETS TAKE ONE TABLET BY MOUTH EVERY 6 HOURS NEEDED MAXIMUM DAILY DOSE = 4 TABLETS SOLD: 08/23/2020 [facility] 0.5 mg 07/30/2020 12:00:00 AM EST tablet 120 TAKE ONE TABLET BY MOUTH FOUR TIMES A DAY NEEDED MAXIMUM DAILY DOSE = 4 TABLETS TAKE ONE TABLET BY MOUTH FOUR TIMES A DAY NEEDED MAXIMUM DAILY DOSE = 4 TABLETS SOLD: 07/30/2020 [facility] Alprazolam 0.5 MG Oral Tablet ALPRAZOLAM 06/29/2020 12:00:00 AM EST t ablet 120 TAKE ONE TABLET BY MOUTH FOUR TIMES A DA Y NEEDED MAXIMUM DAILY DOSE = 4 TABLETS TAKE ONE TABLET BY MOUTH FOUR TIMES A DA Y NEEDED MAXIMUM DAILY DOSE = 4 TABLETS SOLD: 06/29/2020 [facility] 324 mg (65 mg iron) 06/25/2020 12:00:00 AM EST tablet, delayed release (DR/EC) 30 TAKE ONE TABLET BY MOUTH EVERY DAY TAKE ONE TABL ET BY MOUTH EVERY DAY SOLD: 07/26/2020 [facility] 324 mg (65 mg iron) 06/25/2020 12:00:00 AM EST tablet, delayed release (DR/EC) 30 TAKE ONE TABLET BY MOUTH EVERY DAY TAKE ONE TABL ET BY MOUTH EVERY DAY SOLD: 06/26/2020 [facility] 300-30 mg 06/25/2020 12:00:00 AM EST tablet 120 TAKE ONE TABLET BY MOUTH EVERY 6 HOURS NEEDED MAX=4TABS/DAY TAKE ONE TABLET BY MOUTH EVERY 6 HOURS A S NEEDED MAX=4TABS/DAY SOLD: 06/26/2020 [facility] 0.5 mg 05/27/2020 12:00:00 AM EST tablet 120 TAKE ONE TABLET BY MOUTH FOUR TIMES A DAY NEEDED MAX=4TABS/DAY TAKE ONE TABLET BY MOUTH FOUR TIMES A DA Y NEEDED MAX=4TABS/DAY SOLD: 05/28/2020 [facility] 300-30 mg 05/05/2020 12:00:00 AM EST tablet 120 TAKE ONE TABLET BY MOUTH EVERY 6 HOURS MAXIMUM DAILY DOSE = 4 TABLETS TAKE ONE TABLET BY MOUTH EVERY 6 HOURS MAXIMUM DAILY DOSE = 4 TABLETS SOLD: 05/07/2020 [facility] 0.5 mg 04/27/2020 12:00:00 AM EST tablet 120 TAKE ONE TABLET BY MOUTH FOUR TIMES A DAY NEEDED MAXIMUM DAILY DOSE = 4 TABLETS TAKE ONE TABLET BY MOUTH FOUR TIMES A DAY NEEDED MAXIMUM DAILY DOSE = 4 TABLETS SOLD: 04/28/2020 [facility] 300-30 mg 04/26/2020 12:00:00 AM EST tablet 28 TAKE ONE TABLET BY MOUTH EVERY 6 HOURS NEEDED MAXIMUM DAILY DOSE = 4 TABLETS TAKE ONE TABLET BY MOUTH EVERY 6 HOURS NEEDED MAXIMUM DAILY DOSE = 4 TABLETS SOLD: 04/26/2020 [facility] 100 mg 04/22/2020 12:00:00 AM EST tablet 60 TAKE ONE TABLET BY MOUTH TWICE A DAY 30 MINUTES BEFORE OR 2 HOURS AFTER BREAKFAST AND DINNER TAKE ONE TABLET BY MOUTH TWICE A DAY 30 MINUTES BEFORE OR 2 HOURS AFTER BREAKFAST AND DINNER SOLD: 06/26/2020 [facility] 100 mg 04/22/2020 12:00:00 AM EST tablet 60 TAKE ONE TABLET BY MOUTH TWICE A DAY 30 MINUTES BEFORE OR 2 HOURS AFTER BREAKFAST AND DINNER TAKE ONE TABLET BY MOUTH TWICE A DAY 30 MINUTES BEFORE OR 2 HOURS AFTER BREAKFAST AND DINNER SOLD: 10/25/2020 [facility] 100 mg 04/22/2020 12:00:00 AM EST tablet 60 TAKE ONE TABLET BY MOUTH TWICE A DAY 30 MINUTES BEFORE OR 2 HOURS AFTER BREAKFAST AND DINNER TAKE ONE TABLET BY MOUTH TWICE A DAY 30 MINUTES BEFORE OR 2 HOURS AFTER BREAKFAST AND DINNER SOLD: 01/03/2021 [facility] 100 mg 04/22/2020 12:00:00 AM EST tablet 60 TAKE ONE TABLET BY MOUTH TWICE A DAY 30 MINUTES BEFORE OR 2 HOURS AFTER BREAKFAST AND DINNER TAKE ONE TABLET BY MOUTH TWICE A DAY 30 MINUTES BEFORE OR 2 HOURS AFTER BREAKFAST AND DINNER SOLD: 05/28/2020 [facility] 100 mg 04/22/2020 12:00:00 AM EST tablet 60 TAKE ONE TABLET BY MOUTH TWICE A DAY 30 MINUTES BEFORE OR 2 HOURS AFTER BREAKFAST AND DINNER TAKE ONE TABLET BY MOUTH TWICE A DAY 30 MINUTES BEFORE OR 2 HOURS AFTER BREAKFAST AND DINNER SOLD: 04/26/2020 [facility] atorvastatin 40 MG Oral Tablet ATORVASTATIN CALCIUM 04/20/2020 1 2:00:00 AM EST tablet 30 TAKE 1 TABLET BY MOUTH ONCE DAILY TAKE 1 TABLET BY MOUTH ONCE DAILY SOLD: 06/26/2020 [facility] atorvastatin 40 MG Oral Tablet ATORVASTATIN CALCIUM 04/20/2020 1 2:00:00 AM EST tablet 30 TAKE 1 TABLET BY MOUTH ONCE DAILY TAKE 1 TABLET BY MOUTH ONCE DAILY SOLD: 07/26/2020 [facility] atorvastatin 40 MG Oral Tablet ATORVASTATIN CALCIUM 04/20/2020 1 2:00:00 AM EST tablet 30 TAKE 1 TABLET BY MOUTH ONCE DAILY TAKE 1 TABLET BY MOUTH ONCE DAILY SOLD: 04/26/2020 [facility] 2.5 mg 04/11/2020 12:00:00 AM EDT tablet 30 TAKE ONE TABLET BY MOUTH EVERY DAY TAKE ONE TABLET BY MOUTH EVERY DAY SOLD: 08/23/2020 [facility] 2.5 mg 04/11/2020 12:00:00 AM EDT tablet 30 TAKE ONE TABLET BY MOUTH EVERY DAY TAKE ONE TABLET BY MOUTH EVERY DAY SOLD: 07/23/2020 [facility] 2.5 mg 04/11/2020 12:00:00 AM EDT tablet 30 TAKE ONE TABLET BY MOUTH EVERY DAY TAKE ONE TABLET BY MOUTH EVERY DAY SOLD: 05/20/2020 [facility] 2.5 mg 04/11/2020 12:00:00 AM EDT tablet 30 TAKE ONE TABLET BY MOUTH EVERY DAY TAKE ONE TABLET BY MOUTH EVERY DAY SOLD: 06/22/2020 [facility] 2.5 mg 04/11/2020 12:00:00 AM EDT tablet 30 TAKE ONE TABLET BY MOUTH EVERY DAY TAKE ONE TABLET BY MOUTH EVERY DAY SOLD: 09/22/2020 [facility] 24 HR metoprolol succinate 25 MG Extended Release Oral Tablet METOPROLOL SUCCINATE 04/09/2020 12:00:00 AM EDT tablet extended release 24 hr 90 TAKE ONE TABLET BY MOUTH EVERY DAY TAKE ONE TABLET BY MOUTH EVERY DAY SOLD: 07/13/2020 [facility] 0.5 mg 03/25/2020 12:00:00 AM EDT tablet 104 TAKE ONE TABLET BY MOUTH FOUR TIMES A DAY NEEDED, MAXIMUM DAILY DOSE = FOUR TABLETS TAKE ONE TABLET BY MOUTH FOUR TIMES A DAY NEEDED, MAXIMUM DAILY DOSE = FOUR TABLETS SOLD: 03/30/2020 [facility] 300-30 mg 03/25/2020 12:00:00 AM EDT tablet 28 TAKE ONE TABLET BY MOUTH NEEDED EVERY 6 HOURS MAXIMUM DAILY DOSE = 4 TABLETS TAKE ONE TABLET BY MOUTH NEEDED EVERY 6 HOURS MAXIMUM DAILY DOSE = 4 TABLETS SOLD: 03/25/2020 [facility] 300-30 mg 03/11/2020 12:00:00 AM EDT tablet 28 TAKE ONE TABLET BY MOUTH EVERY 6 HOURS NEEDED MAX=4TABS/DAY TAKE ONE TABLET BY MOUTH EVERY 6 HOURS A S NEEDED MAX=4TABS/DAY SOLD: 03/13/2020 [facility] Acetaminophen 325 MG / Hydrocodone Mariely trate 5 MG Oral Tablet Hydrocodone- Acetaminophen 5-325 MG Hydrocodone-Acetaminophen 5-325 MG 03/10/2020 12:00:00 AM EDT 1.0 {tablet_as_needed} active Hydrocodone-Acetaminophen 5-325 MG eCW1 ([facility]) Alprazolam 0.5 MG Oral Tablet ALPRAZOLAM 02/25/2020 12:00:00 AM EDT t ablet 120 TAKE ONE TABLET BY MOUTH FOUR TIMES A DA Y NEEDED MAXIMUM DAILY DOSE = 4 TABLETS TAKE ONE TABLET BY MOUTH FOUR TIMES A DA Y NEEDED MAXIMUM DAILY DOSE = 4 TABLETS SOLD: 02/25/2020 [facility] 324 mg (65 mg iron) 01/27/2020 12:00:00 AM EDT tablet, delayed release (DR/EC) 30 TAKE ONE TABLET BY MOUTH EVERY DAY TAKE ONE TABL ET BY MOUTH EVERY DAY SOLD: 03/13/2020 [facility] 324 mg (65 mg iron) 01/27/2020 12:00:00 AM EDT tablet, delayed release (DR/EC) 30 TAKE ONE TABLET BY MOUTH EVERY DAY TAKE ONE TABL ET BY MOUTH EVERY DAY SOLD: 05/28/2020 [facility] 324 mg (65 mg iron) 01/27/2020 12:00:00 AM EDT tablet, delayed release (DR/EC) 30 TAKE ONE TABLET BY MOUTH EVERY DAY TAKE ONE TABL ET BY MOUTH EVERY DAY SOLD: 04/26/2020 [facility] 324 mg (65 mg iron) 01/27/2020 12:00:00 AM EDT tablet, delayed release (DR/EC) 30 TAKE ONE TABLET BY MOUTH EVERY DAY TAKE ONE TABL ET BY MOUTH EVERY DAY SOLD: 03/25/2020 [facility] 2.5 mg 10/08/2019 12:00:00 AM EDT tablet 30 TAKE ONE TABLET BY MOUTH EVERY DAY TAKE ONE TABLET BY MOUTH EVERY DAY SOLD: 03/13/2020 [facility] 40 mg 10/08/2019 12:00:00 AM EDT tablet 30 TAKE ONE TABLET BY MOUTH EVERY DAY TAKE ONE TABLET BY MOUTH EVERY DAY SOLD: 02/23/2020 [facility] 2.5 mg 10/08/2019 12:00:00 AM EDT tablet 30 TAKE ONE TABLET BY MOUTH EVERY DAY TAKE ONE TABLET BY MOUTH EVERY DAY SOLD: 02/10/2020 [facility] atorvastatin 40 MG Oral Tablet ATORVASTATIN CALCIUM 10/08/2019 1 2:00:00 AM EDT tablet 30 TAKE ONE TABLET BY MOUTH EVERY D AY TAKE ONE TABLET BY MOUTH EVERY DAY SOLD: 03/23/2020 [facility] 100 mg 05/20/2019 12:00:00 AM EST tablet 60 TAKE 1 TABLET BY MOUTH 30 MINUTES BEFORE OR 2 HOURS AFTER BREAKFAST AND DINNER TAKE 1 TABLET BY MOUTH 30 MINUTES BEFORE OR 2 HOURS AFTER BREAKFAST AND DINNER SOLD: 03/25/2020 [facility] 100 mg 05/20/2019 12:00:00 AM EST tablet 60 TAKE 1 TABLET BY MOUTH 30 MINUTES BEFORE OR 2 HOURS AFTER BREAKFAST AND DINNER TAKE 1 TABLET BY MOUTH 30 MINUTES BEFORE OR 2 HOURS AFTER BREAKFAST AND DINNER SOLD: 02/25/2020 [facility] Insurance Providers Payer name Policy type / Coverage type Policy ID Covered alliance party ID Covered alliance party's relationship to sheldon Policy Sheldon Plan Information RODRIGUE I [id number] Self [id number] [place]UE I [id number] Self [id number] [place] CARE MEDICAID [id number] S [id number] RODRIGUE [id number] SP [id number] [place] [id number] SP [id number] ANSI-Commercial [id number] ANSI-Commercial [id number] ANSI-Commercial [id number] ANSI-Commercial [id number] ANSI-Commercial [id number] ANSI-Commercial [id number] ANSI-Commercial [id number] ANSI-Commercial [id number] ANSI-Commercial [id number] ANSI-Commercial [id number] ANSI-Commercial [id number] ANSI-Commercial [id number] ANSI-Commercial [id number] ANSI-Commercial [id number] ANSI-Commercial [id number] [place] - Medicaid [facility] Health Maintenance Organization ([facility]) [facility] [id number] Self [id number] ANSI-Commercial [id number] [place] - Medicaid [facility] Health Maintenance Organization ([facility]) 3 [id number] Self [id number] ANSI-Commercial [id number] ANSI-Commercial [id number] ANSI-Commercial [id number] ANSI-Commercial [id number] ANSI-Commercial [id number] ANSI-Commercial [id number] ANSI-Berry White [id number] ANSI-Berry White [id number] ANSI-Berry White [id number] LUISANA DISCT 80% OF CAP CHGS [id number] S [id number] LUISANA DISCT 80% OF CAP CHGS UNAVAILABLE S UNAVAILABLE [facility] [place] Medicaid [id number] Self [id number] MEDICAID [id number] SP [id number] RODRIGUE [id number] SP [id number] 900 RODRIGUE CARE MEDICAID [id number] S [id number] RODRIGUE CARE [facility] [id number] S [id number] ANSI-Commercial [id number] ANSI-Commercial [id number] Problems, Conditions, and Diagnoses Code Display Name Description Problem Type Effective Dates Data Source(s) I73.9 [id number] PAD (peripheral artery disease) Problem 03/08/2021 12:00:00 AM EDT eCW1 ([facility]) F17.210 [id number] Cigarette nicotine dependence without com plication Problem 03/08/2021 12:00:00 AM EDT eCW1 ([facility]) I10 [id number] Essential hypertension Problem 08/01/2020 12 :00:00 AM EST eCW1 ([facility]) Surgeries/Procedures Procedure Description Date Indications Data Source(s) ECG ROUTINE ECG W/LEAST 12 LDS W/I&R 07/30/2020 12:00: 00 AM EST eCW1 ([facility]) Results ID Date Data Source [id number] 03/20/2020 12:00:00 AM EDT [facility] Name Value Range Interpretation Code Description Data Amanda rce(s) Supporting Document(s) SARS-CoV2 Rapid Antigen [facility] lab [facility] and reported by [facility]. Procedure Social History Code Duration Value Status Description Data Source(s ) Smoking 03/08/2021 12:00:00 AM EDT Current Smoker completed Curre nt Smoker eCW1 ([facility]) Smoking 03/08/2021 12:00:00 AM EDT Current Smoker completed Curre nt Smoker eCW1 ([facility]) Smoking 03/08/2021 12:00:00 AM EDT Current Smoker completed Curre nt Smoker eCW1 ([facility]) Smoking 03/08/2021 12:00:00 AM EDT Current Smoker completed Curre nt Smoker eCW1 ([facility]) Smoking 03/08/2021 12:00:00 AM EDT Current Smoker completed Curre nt Smoker eCW1 ([facility]) Smoking 08/01/2020 12:00:00 AM EST Current Smoker completed Curre nt Smoker eCW1 ([facility]) Smoking 08/01/2020 12:00:00 AM EST Current Smoker completed Curre nt Smoker eCW1 ([facility]) Smoking 08/01/2020 12:00:00 AM EST Current Smoker completed Curre nt Smoker eCW1 ([facility]) Smoking 08/01/2020 12:00:00 AM EST Current Smoker completed Curre nt Smoker eCW1 ([facility]) Smoking 08/01/2020 12:00:00 AM EST Current Smoker completed Curre nt Smoker eCW1 ([facility]) Smoking 08/01/2020 12:00:00 AM EST Current Smoker completed Curre nt Smoker eCW1 ([facility]) Smoking 08/01/2020 12:00:00 AM EST Current Smoker completed Curre nt Smoker eCW1 ([facility]) Smoking 08/01/2020 12:00:00 AM EST Current Smoker completed Curre nt Smoker eCW1 ([facility]) Smoking 08/01/2020 12:00:00 AM EST Current Smoker completed Curre nt Smoker eCW1 ([facility]) Smoking 08/01/2020 12:00:00 AM EST Current Smoker completed Curre nt Smoker eCW1 ([facility]) Smoking 08/01/2020 12:00:00 AM EST Current Smoker completed Curre nt Smoker eCW1 ([facility]) Smoking 08/01/2020 12:00:00 AM EST Current Smoker completed Curre nt Smoker eCW1 ([facility]) Smoking 08/01/2020 12:00:00 AM EST Current Smoker completed Curre nt Smoker eCW1 ([facility]) Smoking 08/01/2020 12:00:00 AM EST Current Smoker completed Curre nt Smoker eCW1 ([facility]) Smoking 08/01/2020 12:00:00 AM EST Current Smoker completed Curre nt Smoker eCW1 ([facility]) Smoking 08/01/2020 12:00:00 AM EST Current Smoker completed Curre nt Smoker eCW1 ([facility]) Smoking 08/01/2020 12:00:00 AM EST Current Smoker completed Curre nt Smoker eCW1 ([facility]) Smoking 08/01/2020 12:00:00 AM EST Current Smoker completed Curre nt Smoker eCW1 ([facility]) Smoking 08/01/2020 12:00:00 AM EST Current Smoker completed Curre nt Smoker eCW1 ([facility]) Smoking 08/01/2020 12:00:00 AM EST Current Smoker completed Curre nt Smoker eCW1 ([facility]) Vital Signs ID Date Data Source UNK Name Value Range Interpretation Code Description Data Source(s) Body weight 198 [lb_av] 198 [lb_av] eCW1 ([facility]) Body height 71 [in_i] 71 [in_i] eCW1 ([facility]) Body mass index (BMI) [Ratio] 27.61 kg/m2 27.61 kg/m2 eCW1 ([facility]) Heart rate 72 /min 72 /min eCW1 ([facility]) Body weight 89.81 kg 89.81 kg eCW1 ([facility]) Respiratory rate 20 /min 20 /min eCW1 ([facility]) Body temperature 98.1 [degF] 98.1 [degF] eCW1 ( [facility]) Systolic blood pressure 124 mm[Hg] 124 mm[Hg] e CW1 ([facility]) Diastolic blood pressure 76 mm[Hg] 76 mm[Hg] eCW1 ([facility]) Body weight 201 [lb_av] 201 [lb_av] eCW1 ([facility]) Body height 71 [in_i] 71 [in_i] eCW1 ([facility]) Body mass index (BMI) [Ratio] 28.03 kg/m2 28.03 kg/m2 eCW1 ([facility]) Heart rate 70 /min 70 /min eCW1 ([facility]) Respiratory rate 18 /min 18 /min eCW1 ([facility]) Body temperature 96.6 [degF] 96.6 [degF] eCW1 ( [facility]) Systolic blood pressure 116 mm[Hg] 116 mm[Hg] e CW1 ([facility]) Diastolic blood pressure 81 mm[Hg] 81 mm[Hg] eCW1 ([facility]) Patient Treatment Plan of Care Planned Activity Planned Date Details Description Data Source (s) Alprazolam 0.5 MG Oral Tablet [Xanax] 04/04/2021 12:00:00 AM EDT eCW1 ([facility]) Alprazolam 0.5 MG Oral Tablet [Xanax] 04/04/2021 12:00:00 AM EDT eCW1 ([facility]) Acetaminophen 300 MG / Codeine Phosphate 30 MG Oral Ta blet 03/21/2021 12:00:00 AM EDT eCW1 ([facility]) Acetaminophen 300 MG / Codeine Phosphate 30 MG Oral Ta blet 03/21/2021 12:00:00 AM EDT eCW1 ([facility]) Acetaminophen 300 MG / Codeine Phosphate 30 MG Oral Ta blet 03/21/2021 12:00:00 AM EDT eCW1 ([facility]) Alprazolam 0.5 MG Oral Tablet [Xanax] 03/15/2021 12:00:00 AM EDT eCW1 ([facility]) Alprazolam 0.5 MG Oral Tablet [Xanax] 03/15/2021 12:00:00 AM EDT eCW1 ([facility]) Aspirin 81 MG 03/08/2021 12:00:00 AM EDT eCW1 ([facility]) Aspirin 81 MG 03/08/2021 12:00:00 AM EDT eCW1 ([facility]) Aspirin 81 MG 03/08/2021 12:00:00 AM EDT eCW1 ([facility]) Aspirin 81 MG 03/08/2021 12:00:00 AM EDT eCW1 ([facility]) Aspirin 81 MG 03/08/2021 12:00:00 AM EDT eCW1 ([facility]) Acetaminophen 300 MG / Codeine Phosphate 30 MG Oral Ta blet 03/01/2021 12:00:00 AM EDT eCW1 ([facility]) Amoxicillin 875 MG / Clavulanate 125 MG Oral Tablet 02/26/20 12:00:00 AM EDT eCW1 ([facility]) Amoxicillin 875 MG / Clavulanate 125 MG Oral Tablet 02/26/20 12:00:00 AM EDT eCW1 ([facility]) Amoxicillin 875 MG / Clavulanate 125 MG Oral Tablet 02/26/20 12:00:00 AM EDT eCW1 ([facility]) Alprazolam 0.5 MG Oral Tablet [Xanax] 02/01/2021 12:00:00 AM EDT eCW1 ([facility]) Alprazolam 0.5 MG Oral Tablet [Xanax] 02/01/2021 12:00:00 AM EDT eCW1 ([facility]) Alprazolam 0.5 MG Oral Tablet [Xanax] 02/01/2021 12:00:00 AM EDT eCW1 ([facility]) Alprazolam 0.5 MG Oral Tablet [Xanax] 02/01/2021 12:00:00 AM EDT eCW1 ([facility]) Alprazolam 0.5 MG Oral Tablet [Xanax] 02/01/2021 12:00:00 AM EDT eCW1 ([facility]) Acetaminophen 300 MG / Codeine Phosphate 30 MG Oral Ta blet 01/28/2021 12:00:00 AM EDT eCW1 ([facility]) Acetaminophen 300 MG / Codeine Phosphate 30 MG Oral Ta blet 01/28/2021 12:00:00 AM EDT eCW1 ([facility] [place]) Acetaminophen 300 MG / Codeine Phosphate 30 MG Oral Ta blet 01/28/2021 12:00:00 AM EDT eCW1 ([facility] [place]) Acetaminophen 300 MG / Codeine Phosphate 30 MG Oral Ta blet 01/28/2021 12:00:00 AM EDT eCW1 ([facility] [place]) Acetaminophen 300 MG / Codeine Phosphate 30 MG Oral Ta blet 01/28/2021 12:00:00 AM EDT eCW1 ([facility] [place]) Acetaminophen 300 MG / Codeine Phosphate 30 MG Oral Ta blet 01/28/2021 12:00:00 AM EDT eCW1 ([facility] [place]) Amoxicillin 500 MG Oral Tablet 09/30/2020 12:00:00 AM EDT eCW1 ([facility]) Amoxicillin 500 MG Oral Tablet 09/30/2020 12:00:00 AM EDT eCW1 ([facility]) Amoxicillin 500 MG Oral Tablet 09/30/2020 12:00:00 AM EDT eCW1 ([facility]) Acetaminophen 325 MG / Hydrocodone Bitartrate 5 MG Ora l Tablet 03/10/2020 12:00:00 AM EDT eCW1 ([facility] [place])
[2021-04-06] MEDS ORDERED: ALPRAZolam 0.5 MG TAB PO ONE (15:30)
[2021-04-06] MEDS ORDERED: XANA0.5T PO (15:37)
--- OUTSIDE RECORDS SUMMARY | 2021-04-06 15:59 | CCD ---
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 Name Role Phone Yulissa PIÑA MD Unavailable Unavailable Yulissa PIÑA MD Unavailable Unavailable Yulissa PIÑA MD Unavailable Unavailable Yulissa PIÑA MD Unavailable Unavailable Yulissa PIÑA MD Unavailable Unavailable Yulissa PIÑA MD Unavailable Unavailable Yulissa PIÑA MD Unavailable Unavailable Yulissa PIÑA MD Unavailable Unavailable Yulissa PIÑA MD Unavailable Unavailable Yulissa PIÑA MD Unavailable Unavailable Yulissa PIÑA MD Unavailable Unavailable Yuilssa PIÑA MD Unavailable Unavailable Yulissa PIÑA MD Unavailable Unavailable Yulissa PIÑA MD Unavailable Unavailable Yulissa PIÑA MD Unavailable Unavailable Yulissa PIÑA MD Unavailable Unavailable Yulissa PIÑA MD Unavailable Unavailable Yulissa PIÑA MD Unavailable Unavailable Yulissa PIÑA MD Unavailable Unavailable Yulissa PIÑA MD Unavailable Unavailable Yuilssa PIÑA MD Unavailable Unavailable Yulissa PIÑA MD Unavailable Unavailable AYANAYulissa MD Unavailable Unavailable AYANAYulissa MD Unavailable Unavailable AYANAYulissa MD Unavailable Unavailable AYANAYulissa MD Unavailable Unavailable AYANAYulissa MD Unavailable Unavailable AYANAYulissa MD Unavailable Unavailable AYANAYulissa MD Unavailable Unavailable AYANAYulissa MD Unavailable Unavailable AYANA, Yulissa MCKEON MD Unavailable Unavailable AYANAYulissa MD Unavailable Unavailable AYANAYulissa MD Unavailable Unavailable AYANAYulissa MD Unavailable Unavailable AYNAAYulissa MD Unavailable Unavailable AYANA, VIJAY MD Unavailable [...] is protected by Article 27-F of the [facility] Public Health law. If you continue you may have access to information: Regarding HIV / AIDS; Provided by facilities licensed or operated by the [facility] Office of Mental Health; or Provided by the [facility] Office for People With Developmental Disabilities. If such information is present, then the following [facility] mandated warning applies: This information has been [...] law may result in a fine or mcfp sentence or both. A general authorization for the release of medical or other information is NOT sufficient authorization for further disc losure. Family History Family Member Name Family Member Gender Family Member Status Date o f Status Description Data Source(s) Unknown Male Problem [facility] ([facility]) Unknown Male Problem [facility] ([facility] ) () Encounters Encounter Providers Location Date Indications Data Source(s ) Unknown [address] [facility] [place] [address] 04/04/2021 12:00:00 AM EDT eCW1 ([facility]) Unknown [address] [facility] [place] [address] 03/30/2021 12:00:00 AM EDT eCW1 ([facility]) Unknown [address] [facility] [place] [address] 03/21/2021 12:00:00 AM EDT eCW1 ([facility]) Unknown [address] [facility] [place] [address] 03/14/2021 12:00:00 AM EDT eCW1 ([facility]) Outpatient [address] [facility] [place] [address] 03/08/2021 12:00:00 AM EDT eCW1 ([facility]) [place] [address] [facility] [place] [address] 03/01/2021 12:00:00 AM EDT eCW1 ([facility]) Unknown [address] [facility] [place] [address] 02/25/2021 12:00:00 AM EDT eCW1 ([facility]) [place] [address] [facility] [place] [address] 02/25/2021 12:00:00 AM EDT eCW1 ([facility]) Unknown [address] [facility] [place] [address] 02/23/2021 12:00:00 AM EDT eCW1 ([facility]) Unknown [address] [facility] [place] [address] 01/31/2021 12:00:00 AM EDT eCW1 ([facility]) Unknown [address] [facility] [place] [address] 01/28/2021 12:00:00 AM EDT eCW1 ([facility]) Unknown [address] [facility] [place] [address] 01/28/2021 12:00:00 AM EDT eCW1 ([facility]) Unknown [address] [facility] [place] [address] 01/06/2021 12:00:00 AM EDT eCW1 ([facility]) Unknown [address] [facility] [place] [address] 01/03/2021 12:00:00 AM EDT eCW1 ([facility]) Unknown [address] [facility] [place] [address] 12/29/2020 12:00:00 AM EDT eCW1 ([facility]) Unknown [address] [facility] [place] [address] 11/30/2020 12:00:00 AM EDT eCW1 ([facility]) Unknown [address] [facility] [place] [address] 10/28/2020 12:00:00 AM EDT eCW1 ([facility]) Unknown [address] [facility] [place] [address] 10/21/2020 12:00:00 AM EDT eCW1 ([facility]) Unknown [address] [facility] [place] [address] 10/19/2020 12:00:00 AM EDT eCW1 ([facility]) Unknown [address] [facility] [place] [address] 09/30/2020 12:00:00 AM EDT eCW1 ([facility]) Unknown [address] [facility] [place] [address] 09/30/2020 12:00:00 AM EDT eCW1 ([facility]) Unknown [address] [facility] [place] [address] 08/31/2020 12:00:00 AM EDT eCW1 ([facility]) Unknown [address] [facility] [place] [address] 08/26/2020 12:00:00 AM EDT eCW1 ([facility]) Unknown [address] [facility] [place] [address] 08/20/2020 12:00:00 AM EST eCW1 ([facility]) Outpatient [address] [facility] [place] [address] 07/30/2020 12:00:00 AM EST eCW1 ([facility]) Unknown [address] [facility] [place] [address] 06/29/2020 12:00:00 AM EST eCW1 ([facility]) Unknown [address] [facility] [place] [address] 06/25/2020 12:00:00 AM EST eCW1 ([facility]) Unknown [address] [facility] [place] [address] 05/26/2020 12:00:00 AM EST eCW1 ([facility]) Unknown [address] [facility] [place] [address] 04/26/2020 12:00:00 AM EST eCW1 ([facility]) Unknown [address] [facility] [place] [address] 04/08/2020 12:00:00 AM EDT eCW1 ([facility]) Unknown [address] [facility] [place] [address] 03/24/2020 12:00:00 AM EDT eCW1 ([facility]) Unknown [address] [facility] [place] [address] 03/11/2020 12:00:00 AM EDT eCW1 ([facility]) Unknown [address] [facility] [place] [address] 03/11/2020 12:00:00 AM EDT eCW1 ([facility]) Unknown [address] [facility] [place] [address] 03/10/2020 12:00:00 AM EDT eCW1 ([facility]) Outpatient Attender: LINDA PIÑA MD 02/24/2020 12:00: 00 AM [facility] Immunizations Vaccine Date Status Description Data Source(s) COVID-19 VACCINE Moderna 10/05/2020 12:00:00 AM EDT completed [facility] Vaccine Series Complete: YESThis Data wa s Submitted to [facility] Via [facility]. COVID-19 VACCINE Moderna 08/29/2020 12:00:00 AM EDT completed [facility] Vaccine Series Complete: NOThis Data was Submitted to [facility] Via [facility]. COVID-19 VACCINE, MRNA-1273, LNP-S (MODERNA)/PF 08/29/2020 1 2:00:00 AM EDT completed [facility] Medications Medication Brand Name Start Date Product Form Dose Route Admi nistrative Instructions Pharmacy Instructions Status Indications Reaction Description Data Source(s) Alprazolam 0.5 MG Oral Tablet [Xanax] Xanax 0.5 MG Xanax 0.5 MG 04/04/2021 12:00:00 AM EDT 1.0 {tablet} active Xa nax 0.5 MG eCW1 ([facility]) Alprazolam 0.5 MG Oral Tablet [Xanax] Xanax 0.5 MG Xanax 0.5 MG 04/04/2021 12:00:00 AM EDT 1.0 {tablet} active Xa nax 0.5 MG eCW1 ([facility]) Acetaminophen 300 MG / Codeine Phosphate 30 MG Oral Tablet Acetaminophen-Codeine #3 300-30 MG Acetaminophen-Codeine #3 300-30 MG 03/21/2021 12:00:00 AM EDT 1.0 {tablet_as_needed} active Acetamino phen-Codeine #3 300-30 MG eCW1 ([facility]) Acetaminophen 300 MG / Codeine Phosphate 30 MG Oral Tablet Acetaminophen-Codeine #3 300-30 MG Acetaminophen-Codeine #3 300-30 MG 03/21/2021 12:00:00 AM EDT 1.0 {tablet_as_needed} active Acetamino phen-Codeine #3 300-30 MG eCW1 ([facility]) Acetaminophen 300 MG / Codeine Phosphate 30 [...] active Acetamino phen-Codeine #3 300-30 MG eCW1 ([facility]) Alprazolam 0.5 MG Oral Tablet [Xanax] Xanax 0.5 MG Xanax 0.5 MG 03/15/2021 12:00:00 AM EDT 1.0 {tablet} active Xa nax 0.5 MG eCW1 ([facility]) 0.5 mg 03/15/2021 12:00:00 AM EDT tablet 60 TAKE ONE TABLET BY MOUTH TWICE A DAY NEEDED MAXIMUM DAILY DOSE = 2 TABLETS TAKE ONE TABLET BY MOUTH TWICE A DAY NEEDED MAXIMUM DAILY DOSE = 2 TABLETS SOLD: 03/19/2021 [facility] Alprazolam 0.5 MG Oral Tablet [Xanax] Xanax 0.5 MG Xanax 0.5 MG 03/15/2021 12:00:00 AM EDT 1.0 {tablet} active Xa nax 0.5 MG eCW1 ([facility]) Aspirin 81 MG UNK 03/08/2021 12:00:00 AM EDT acti ve Aspirin 81 MG eCW1 ([facility]) Aspirin 81 MG UNK 03/08/2021 12:00:00 AM EDT acti ve Aspirin 81 MG eCW1 ([facility]) Aspirin 81 MG UNK 03/08/2021 12:00:00 AM EDT acti ve Aspirin 81 MG eCW1 ([facility]) Aspirin 81 MG UNK 03/08/2021 12:00:00 AM EDT acti ve Aspirin 81 MG eCW1 ([facility]) Aspirin 81 MG UNK 03/08/2021 12:00:00 AM EDT acti ve Aspirin 81 MG eCW1 ([facility]) Acetaminophen 300 MG / Codeine Phosphate 30 MG Oral Tablet Acetaminophen-Codeine #3 300-30 MG Acetaminophen-Codeine #3 300-30 MG 03/01/2021 12:00:00 AM EDT 1.0 {tablet_as_needed} active Acetamino phen-Codeine #3 300-30 MG eCW1 ([facility]) Acetaminophen 300 MG / Codeine Phosphate 30 MG Oral Ta blet 300-30 mg ACETAMINOPHEN WITH CODEINE 03/01/2021 12:00:00 AM EDT tablet 28 TAKE ONE TABLET BY MOUTH EVERY 6 HOURS NEEDED MAXIMUM DAILY DOSE = 4 TABLETS TAKE ONE TABLET BY MOUTH EVERY 6 HOURS NEEDED MAXIMUM DAILY DOSE = 4 TABLETS SOLD: 03/01/2021 [facility] Acetaminophen 300 MG / Codeine Phosphate 30 MG Oral Tablet Acetaminophen-Codeine #3 300-30 MG Acetaminophen-Codeine #3 300-30 MG 03/01/2021 12:00:00 AM EDT 1.0 {tablet_as_needed} active Acetamino phen-Codeine #3 300-30 MG eCW1 ([facility]) Acetaminophen 300 MG / Codeine Phosphate 30 MG Oral Tablet Acetaminophen-Codeine #3 300-30 MG Acetaminophen-Codeine #3 300-30 MG 03/01/2021 12:00:00 AM EDT 1.0 {tablet_as_needed} active Acetamino phen-Codeine #3 300-30 MG eCW1 ([facility]) Amoxicillin 875 MG / Clavulanate 125 MG Oral Tablet Amoxicillin-Pot Clavulanate 875-125 MG Amoxicillin-Pot Clavulanate 875-125 MG 02/25/2021 12:00:00 AM ED T 1.0 {tablet} suspended Amoxicillin-Pot C lavulanate 875-125 MG eCW1 ([facility]) Amoxicillin 875 MG / Clavulanate 125 MG Oral Tablet Amoxicillin-Pot Clavulanate 875-125 MG Amoxicillin-Pot Clavulanate 875-125 MG 02/25/2021 12:00:00 AM ED T 1.0 {tablet} active Amoxicillin-Pot Cla vulanate 875-125 MG eCW1 ([facility]) Amoxicillin 875 MG / Clavulanate 125 MG Oral Tablet Amoxicillin-Pot Clavulanate 875-125 MG Amoxicillin-Pot Clavulanate 875-125 MG 02/25/2021 12:00:00 AM ED T 1.0 {tablet} suspended Amoxicillin-Pot C lavulanate 875-125 MG eCW1 ([facility]) Amoxicillin 875 MG / Clavulanate 125 MG Oral Tablet Amoxicillin-Pot Clavulanate 875-125 MG Amoxicillin-Pot Clavulanate 875-125 MG 02/25/2021 12:00:00 AM ED T 1.0 {tablet} active Amoxicillin-Pot Cla vulanate 875-125 MG eCW1 ([facility]) Amoxicillin 875 MG / Clavulanate 125 MG Oral Tablet Amoxicillin-Pot Clavulanate 875-125 MG Amoxicillin-Pot Clavulanate 875-125 MG 02/25/2021 12:00:00 AM ED T 1.0 {tablet} suspended Amoxicillin-Pot C lavulanate 875-125 MG eCW1 ([facility]) Amoxicillin 875 MG / Clavulanate 125 MG Oral Tablet Amoxicillin-Pot Clavulanate 875-125 MG Amoxicillin-Pot Clavulanate 875-125 MG 02/25/2021 12:00:00 AM ED T 1.0 {tablet} suspended Amoxicillin-Pot C lavulanate 875-125 MG eCW1 ([facility]) Amoxicillin 875 MG / Clavulanate 125 MG Oral Tablet Amoxicillin-Pot Clavulanate 875-125 MG Amoxicillin-Pot Clavulanate 875-125 MG 02/25/2021 12:00:00 AM ED T 1.0 {tablet} active Amoxicillin-Pot Cla vulanate 875-125 MG eCW1 ([facility]) Amoxicillin 875 MG / Clavulanate 125 MG Oral Tablet Amoxicillin-Pot Clavulanate 875-125 MG Amoxicillin-Pot Clavulanate 875-125 MG 02/25/2021 12:00:00 AM ED T 1.0 {tablet} suspended Amoxicillin-Pot C lavulanate 875-125 MG eCW1 ([facility]) atorvastatin 40 MG Oral Tablet ATORVASTATIN CALCIUM [...] {tablet} active Xa nax 0.5 MG eCW1 ([facility]) 0.5 mg 02/01/2021 12:00:00 AM EDT tablet [...] {tablet} active Xa nax 0.5 MG eCW1 ([facility]) Alprazolam 0.5 MG Oral Tablet [Xanax] Xanax 0.5 MG Xanax 0.5 MG 02/01/2021 12:00:00 AM EDT 1.0 {tablet} active Xa nax 0.5 MG eCW1 ([facility]) Alprazolam 0.5 MG Oral Tablet [Xanax] Xanax 0.5 MG Xanax 0.5 MG 02/01/2021 12:00:00 AM EDT 1.0 {tablet} active Xa nax 0.5 MG eCW1 ([facility]) Alprazolam 0.5 MG Oral Tablet [Xanax] Xanax 0.5 MG Xanax 0.5 MG 02/01/2021 12:00:00 AM EDT 1.0 {tablet} active Xa nax 0.5 MG eCW1 ([facility]) Alprazolam 0.5 MG Oral Tablet [Xanax] Xanax 0.5 MG Xanax 0.5 MG 02/01/2021 12:00:00 AM EDT 1.0 {tablet} active Xa nax 0.5 MG eCW1 ([facility]) Acetaminophen 300 MG / Codeine Phosphate 30 MG Oral Tablet Acetaminophen-Codeine #3 300-30 MG Acetaminophen-Codeine #3 300-30 MG 01/28/2021 12:00:00 AM EDT 1.0 {tablet_as_needed} active Acetamino phen-Codeine #3 300-30 MG eCW1 ([facility]) Acetaminophen 300 MG / Codeine Phosphate 30 MG Oral Tablet Acetaminophen-Codeine #3 300-30 MG Acetaminophen-Codeine #3 300-30 MG 01/28/2021 12:00:00 AM EDT 1.0 {tablet_as_needed} active Acetamino phen-Codeine #3 300-30 MG eCW1 ([facility]) Acetaminophen 300 MG / Codeine Phosphate 30 MG Oral Tablet Acetaminophen-Codeine #3 300-30 MG Acetaminophen-Codeine #3 300-30 MG 01/28/2021 12:00:00 AM EDT 1.0 {tablet_as_needed} active Acetamino phen-Codeine #3 300-30 MG eCW1 ([facility]) Acetaminophen 300 MG / Codeine Phosphate 30 [...] active Acetamino phen-Codeine #3 300-30 MG eCW1 ([facility]) Acetaminophen 300 MG / Codeine Phosphate 30 MG Oral Tablet Acetaminophen-Codeine #3 300-30 MG Acetaminophen-Codeine #3 300-30 MG 01/28/2021 12:00:00 AM EDT 1.0 {tablet_as_needed} active Acetamino phen-Codeine #3 300-30 MG eCW1 ([facility]) Acetaminophen 300 MG / Codeine Phosphate 30 MG Oral Tablet Acetaminophen-Codeine #3 300-30 MG Acetaminophen-Codeine #3 300-30 MG 01/28/2021 12:00:00 AM EDT 1.0 {tablet_as_needed} active Acetamino phen-Codeine #3 300-30 MG eCW1 ([facility]) Acetaminophen 300 MG / Codeine Phosphate 30 [...] 1.0 {tablet} active Amoxicillin 500 MG eCW1 ([facility]) Amoxicillin 500 MG Oral Tablet Amoxicillin 500 MG 09/30/2020 12:00: 00 AM EDT 1.0 {tablet} active Amoxicillin 500 MG eCW1 ([facility]) Amoxicillin 500 MG Oral Tablet Amoxicillin 500 MG 09/30/2020 12:00: 00 AM EDT 1.0 {tablet} active Amoxicillin 500 MG eCW1 ([facility]) Alprazolam 0.5 MG Oral Tablet ALPRAZOLAM 09/30/2020 [...] 1.0 {tablet} active Amoxicillin 500 MG eCW1 ([facility]) Amoxicillin 500 MG Oral Tablet Amoxicillin 500 MG 09/30/2020 12:00: 00 AM EDT 1.0 {tablet} active Amoxicillin 500 MG eCW1 ([facility]) Amoxicillin 500 MG Oral Tablet Amoxicillin 500 MG 09/30/2020 12:00: 00 AM EDT 1.0 {tablet} active Amoxicillin 500 MG eCW1 ([facility]) Amoxicillin 500 MG Oral Tablet Amoxicillin 500 MG 09/30/2020 12:00: 00 AM EDT 1.0 {tablet} active Amoxicillin 500 MG eCW1 ([facility]) Amoxicillin 500 MG Oral Tablet Amoxicillin 500 MG 09/30/2020 12:00: 00 AM EDT 1.0 {tablet} active Amoxicillin 500 MG eCW1 ([facility]) Amoxicillin 500 MG Oral Tablet Amoxicillin 500 MG 09/30/2020 12:00: 00 AM EDT 1.0 {tablet} active Amoxicillin 500 MG eCW1 ([facility]) Amoxicillin 500 MG Oral Tablet Amoxicillin 500 MG 09/30/2020 12:00: 00 AM EDT 1.0 {tablet} active Amoxicillin 500 MG eCW1 ([facility]) Amoxicillin 500 MG Oral Tablet Amoxicillin 500 MG 09/30/2020 12:00: 00 AM EDT 1.0 {tablet} active Amoxicillin 500 MG eCW1 ([facility]) Amoxicillin 500 MG Oral Tablet Amoxicillin 500 MG 09/30/2020 12:00: 00 AM EDT 1.0 {tablet} active Amoxicillin 500 MG eCW1 ([facility]) Amoxicillin 500 MG Oral Tablet Amoxicillin 500 MG 09/30/2020 12:00: 00 AM EDT 1.0 {tablet} active Amoxicillin 500 MG eCW1 ([facility]) Amoxicillin 500 MG Oral Tablet Amoxicillin 500 MG 09/30/2020 12:00: 00 AM EDT 1.0 {tablet} active Amoxicillin 500 MG eCW1 ([facility]) Amoxicillin 500 MG Oral Tablet Amoxicillin 500 MG 09/30/2020 12:00: 00 AM EDT 1.0 {tablet} active Amoxicillin 500 MG eCW1 ([facility]) Amoxicillin 500 MG Oral Tablet Amoxicillin 500 MG 09/30/2020 12:00: 00 AM EDT 1.0 {tablet} active Amoxicillin 500 MG eCW1 ([facility]) Amoxicillin 500 MG Oral Tablet Amoxicillin 500 MG 09/30/2020 12:00: 00 AM EDT 1.0 {tablet} active Amoxicillin 500 MG eCW1 ([facility]) Amoxicillin 500 MG Oral Tablet Amoxicillin 500 MG 09/30/2020 12:00: 00 AM EDT 1.0 {tablet} active Amoxicillin 500 MG eCW1 ([facility]) Amoxicillin 500 MG Oral Tablet Amoxicillin 500 MG 09/30/2020 12:00: 00 AM EDT 1.0 {tablet} active Amoxicillin 500 MG eCW1 ([facility]) Amoxicillin 500 MG Oral Tablet Amoxicillin 500 MG 09/30/2020 12:00: 00 AM EDT 1.0 {tablet} active Amoxicillin 500 MG eCW1 ([facility]) Amoxicillin 500 MG Oral Tablet Amoxicillin 500 MG 09/30/2020 12:00: 00 AM EDT 1.0 {tablet} active Amoxicillin 500 MG eCW1 ([facility]) Alprazolam 0.5 MG Oral Tablet ALPRAZOLAM 08/31/2020 [...] TABLET BY MOUTH ONCE DAILY SOLD: 07/26/2020 [facility] atorvastatin 40 MG Oral Tablet [...] 1.0 {tablet_as_needed} active Hydrocodone-Acetaminophen 5-325 MG eCW1 ([facility]) Alprazolam 0.5 MG Oral Tablet ALPRAZOLAM 02/25/2020 [...] type / Coverage type Policy ID Covered green party ID Covered green party's relationship to sheldon Policy Sheldon Plan Information RODRIGUE I [id number] Self [id number] RODRIGUE I [id number] Self [id number] [employer]ODRIGUE CARE MEDICAID [id number] S [id number] RODRIGUE [id number] SP [id number] RODRIGUE [id number] SP [id number] ANSI-Commercial [id number] ANSI-Commercial [id number] ANSI-Commercial [id number] ANSI-Commercial [id number] ANSI-Commercial [id number] ANSI-Commercial [id number] ANSI-Commercial [id number] ANSI-Commercial [id number] ANSI-Commercial [id number] ANSI-Commercial [id number] ANSI-Commercial [id number] ANSI-Commercial [id number] ANSI-Commercial [id number] ANSI-Commercial [id number] ANSI-Commercial [id number] [facility] - Medicaid [facility] ([facility]) [facility] [id number] Self [id number] ANSI-Commercial [id number] [place] - [facility] ([facility]) 3 [id number] Self [id number] ANSI-Commercial [id number] ANSI-Commercial [id number] ANSI-Commercial [id number] ANSI-Commercial [id number] ANSI-Commercial [id number] ANSI-Commercial [id number] ANSI-[employer] [id number] ANSI-[employer] [id number] [employer] [id number] LUISANA DISCT 80% OF CAP CHGS [id number] S [id number] LUISANA DISCT 80% OF CAP CHGS UNAVAILABLE S UNAVAILABLE [facility] [place] Medicaid [id number] Self [id number] MEDICAID [id number] SP [id number] ROD[place]IGUE [id number] SP [id number] MEDICAID [id number] S [id number] [facility] [id number] S [id number] ANSI-Commercial [id number] ANSI-Commercial [id number] Problems, Conditions, and Diagnoses Code Display Name Description Problem Type Effective Dates Data Source(s) I73.9 [id number] PAD (peripheral artery disease) Problem 03/08/2021 12:00:00 AM EDT eCW1 ([facility]) F17.210 [id number] Cigarette nicotine dependence without com plication Problem 03/08/2021 12:00:00 AM EDT eCW1 ([facility]) I10 [id number] Essential hypertension Problem 08/01/2020 12 :00:00 AM EST eCW1 ([facility]) Surgeries/Procedures Procedure Description Date Indications Data Source(s) ECG ROUTINE ECG W/LEAST 12 LDS W/I&R 07/30/2020 12:00: 00 AM EST eCW1 ([facility]) Results ID Date Data Source [id number] 03/20/2020 12:00:00 AM EDT [facility] Name Value Range Interpretation Code Description Data Amanda rce(s) Supporting Document(s) SARS-CoV2 Rapid Antigen [facility] This lab was ordered by [facility] and reported by [facility]. Procedure Social History Code Duration Value Status Description Data Source(s ) Smoking 03/08/2021 12:00:00 AM EDT Current Smoker completed Curre nt Smoker eCW1 ([facility]) Smoking 03/08/2021 12:00:00 AM EDT Current Smoker completed Curre nt Smoker eCW1 ([facility]) Smoking 03/08/2021 12:00:00 AM EDT Current Smoker completed Curre nt Smoker eCW1 ([facility]) Smoking 03/08/2021 12:00:00 AM EDT Current Smoker completed Curre nt Smoker eCW1 ([facility]) Smoking 03/08/2021 12:00:00 AM EDT Current Smoker completed Curre nt Smoker eCW1 ([facility]) Smoking 08/01/2020 12:00:00 AM EST Current Smoker completed Curre nt Smoker eCW1 ([facility]) Smoking 08/01/2020 12:00:00 AM EST Current Smoker completed Curre nt Smoker eCW1 ([facility]) Smoking 08/01/2020 12:00:00 AM EST Current Smoker completed Curre nt Smoker eCW1 ([facility]) Smoking 08/01/2020 12:00:00 AM EST Current Smoker completed Curre nt Smoker eCW1 ([facility]) Smoking 08/01/2020 12:00:00 AM EST Current Smoker completed Curre nt Smoker eCW1 ([facility]) Smoking 08/01/2020 12:00:00 AM EST Current Smoker completed Curre nt Smoker eCW1 ([facility]) Smoking 08/01/2020 12:00:00 AM EST Current Smoker completed Curre nt Smoker eCW1 ([facility]) Smoking 08/01/2020 12:00:00 AM EST Current Smoker completed Curre nt Smoker eCW1 ([facility]) Smoking 08/01/2020 12:00:00 AM EST Current Smoker completed Curre nt Smoker eCW1 ([facility]) Smoking 08/01/2020 12:00:00 AM EST Current Smoker completed Curre nt Smoker eCW1 ([facility]) Smoking 08/01/2020 12:00:00 AM EST Current Smoker completed Curre nt Smoker eCW1 ([facility]) Smoking 08/01/2020 12:00:00 AM EST Current Smoker completed Curre nt Smoker eCW1 ([facility]) Smoking 08/01/2020 12:00:00 AM EST Current Smoker completed Curre nt Smoker eCW1 ([facility]) Smoking 08/01/2020 12:00:00 AM EST Current Smoker completed Curre nt Smoker eCW1 ([facility]) Smoking 08/01/2020 12:00:00 AM EST Current Smoker completed Curre nt Smoker eCW1 ([facility]) Smoking 08/01/2020 12:00:00 AM EST Current Smoker completed Curre nt Smoker eCW1 ([facility]) Smoking 08/01/2020 12:00:00 AM EST Current Smoker completed Curre nt Smoker eCW1 ([facility]) Smoking 08/01/2020 12:00:00 AM EST Current Smoker completed Curre nt Smoker eCW1 ([facility]) Smoking 08/01/2020 12:00:00 AM EST Current Smoker completed Curre nt Smoker eCW1 ([facility]) Smoking 08/01/2020 12:00:00 AM EST Current Smoker completed Curre nt Smoker eCW1 ([facility]) Vital Signs ID Date Data Source UNK Name Value Range Interpretation Code Description Data Source(s) Body mass index (BMI) [Ratio] 27.61 kg/m2 27.61 kg/m2 eCW1 ([facility]) Body weight 198 [lb_av] 198 [lb_av] eCW1 ([facility]) Body weight 89.81 kg 89.81 kg eCW1 ([facility]) Body height 71 [in_i] 71 [in_i] eCW1 ([facility]) Heart rate 72 /min 72 /min eCW1 ([facility]) Respiratory rate 20 /min 20 /min eCW1 ([facility]) Body temperature 98.1 [degF] 98.1 [degF] eCW1 ( [facility]) Systolic blood pressure 124 mm[Hg] 124 mm[Hg] e CW1 ([facility]) Diastolic blood pressure 76 mm[Hg] 76 mm[Hg] eCW1 ([facility]) Body weight 201 [lb_av] 201 [lb_av] eCW1 ([facility]) Body height 71 [in_i] 71 [in_i] eCW1 ([facility]) Body mass index (BMI) [Ratio] 28.03 kg/m2 28.03 kg/m2 eCW1 ([facility]) Heart rate 70 /min 70 /min eCW1 ([facility]) Respiratory rate 18 /min 18 /min eCW1 ([facility]) Body temperature 96.6 [degF] 96.6 [degF] eCW1 ( [facility]) Systolic blood pressure 116 mm[Hg] 116 mm[Hg] e CW1 ([facility]) Diastolic blood pressure 81 mm[Hg] 81 mm[Hg] eCW1 ([facility]) Patient Treatment Plan of Care Planned Activity Planned Date Details Description Data Source (s) Alprazolam 0.5 MG Oral Tablet [Xanax] 04/04/2021 12:00:00 AM EDT eCW1 ([facility]) Alprazolam 0.5 MG Oral Tablet [Xanax] 04/04/2021 12:00:00 AM EDT eCW1 ([facility]) Acetaminophen 300 MG / Codeine Phosphate 30 MG Oral Ta blet 03/21/2021 12:00:00 AM EDT eCW1 ([facility]) Acetaminophen 300 MG / Codeine Phosphate 30 MG Oral Ta blet 03/21/2021 12:00:00 AM EDT eCW1 ([facility]) Acetaminophen 300 MG / Codeine Phosphate 30 MG Oral Ta blet 03/21/2021 12:00:00 AM EDT eCW1 ([facility]) Alprazolam 0.5 MG Oral Tablet [Xanax] 03/15/2021 12:00:00 AM EDT eCW1 ([facility]) Alprazolam 0.5 MG Oral Tablet [Xanax] 03/15/2021 12:00:00 AM EDT eCW1 ([facility]) Aspirin 81 MG 03/08/2021 12:00:00 AM EDT eCW1 ([facility]) Aspirin 81 MG 03/08/2021 12:00:00 AM EDT eCW1 ([facility]) Aspirin 81 MG 03/08/2021 12:00:00 AM EDT eCW1 ([facility]) Aspirin 81 MG 03/08/2021 12:00:00 AM EDT eCW1 ([facility]) Aspirin 81 MG 03/08/2021 12:00:00 AM EDT eCW1 ([facility]) Acetaminophen 300 MG / Codeine Phosphate 30 MG Oral Ta blet 03/01/2021 12:00:00 AM EDT eCW1 ([facility]) Amoxicillin 875 MG / Clavulanate 125 MG Oral Tablet 02/26/20 12:00:00 AM EDT eCW1 ([facility]) Amoxicillin 875 MG / Clavulanate 125 MG Oral Tablet 02/26/20 12:00:00 AM EDT eCW1 ([facility]) Amoxicillin 875 MG / Clavulanate 125 MG Oral Tablet 02/26/20 12:00:00 AM EDT eCW1 ([facility]) Alprazolam 0.5 MG Oral Tablet [Xanax] 02/01/2021 12:00:00 AM EDT eCW1 ([facility]) Alprazolam 0.5 MG Oral Tablet [Xanax] 02/01/2021 12:00:00 AM EDT eCW1 ([facility]) Alprazolam 0.5 MG Oral Tablet [Xanax] 02/01/2021 12:00:00 AM EDT eCW1 ([facility]) Alprazolam 0.5 MG Oral Tablet [Xanax] 02/01/2021 12:00:00 AM EDT eCW1 ([facility]) Alprazolam 0.5 MG Oral Tablet [Xanax] 02/01/2021 12:00:00 AM EDT eCW1 ([facility]) Acetaminophen 300 MG / Codeine Phosphate 30 MG Oral Ta blet 01/28/2021 12:00:00 AM EDT eCW1 ([facility]) Acetaminophen 300 MG / Codeine Phosphate 30 MG Oral Ta blet 01/28/2021 12:00:00 AM EDT eCW1 ([facility]) Acetaminophen 300 MG / Codeine Phosphate 30 MG Oral Ta blet 01/28/2021 12:00:00 AM EDT eCW1 ([facility]) Acetaminophen 300 MG / Codeine Phosphate 30 MG Oral Ta blet 01/28/2021 12:00:00 AM EDT eCW1 ([facility]) Acetaminophen 300 MG / Codeine Phosphate 30 MG Oral Ta blet 01/28/2021 12:00:00 AM EDT eCW1 ([facility]) Acetaminophen 300 MG / Codeine Phosphate 30 MG Oral Ta blet 01/28/2021 12:00:00 AM EDT eCW1 ([facility]) Amoxicillin 500 MG Oral Tablet 09/30/2020 12:00:00 AM EDT eCW1 ([facility]) Amoxicillin 500 MG Oral Tablet 09/30/2020 12:00:00 AM EDT eCW1 ([facility]) Amoxicillin 500 MG Oral Tablet 09/30/2020 12:00:00 AM EDT eCW1 ([facility]) Acetaminophen 325 MG / Hydrocodone Bitartrate 5 MG Ora l Tablet 03/10/2020 12:00:00 AM EDT eCW1 ([facility])
[2021-04-06 16:00] VITALS: BP 150/89
== END 2021-04-06 16:02 | disposition home or self-care (01) ==
LOC: M ED 13:44
DX: Z76.0 Encounter for issue of repeat prescription (principal); F41.1 Generalized anxiety disorder; I10 Essential (primary) hypertension; Z79.899 Other long term (current) drug therapy

== ENCOUNTER → 2022-09-28 | Outpatient (CLI) | payer OTHER ==
[~2022-09-28] MED LIST: ACET300T48; ALPR0.25 PO; ALPR0.5T3; ATOR40TA75 PO; B-12100010 PO; ECOT81TA5 PO; HOME MED LIST COMPLETE! XX SCH; HYDR-3363; LIDOCAINE 1% MDV 20ML VIAL As Ordered ONE; LISI10TA22 PO; LISI2.5T9; METO1TAB32 PO; MULT400T10 PO; XANA0.5T PO
[2022-09-28 11:15] VITALS: BP 171/94
== END ==
LOC: M IRPRO 07:59
PROVIDERS: ATTEND Internal Medicine Pulmonary Disease
DX: R91.1 Solitary pulmonary nodule (principal)

== ENCOUNTER → 2022-10-25 | Outpatient (CLI) | payer OTHER ==
[~2022-10-25] MED LIST changes: -HOME MED LIST COMPLETE! XX SCH; -LIDOCAINE 1% MDV 20ML VIAL As Ordered ONE
== END ==
LOC: M PLARAD 08:22
PROVIDERS: ATTEND Internal Medicine Pulmonary Disease
DX: C34.11 Malignant neoplasm of upper lobe, right bronchus or lung (principal)
CPT/HCPCS: 78815; A9552

== ENCOUNTER 2023-01-03 06:26 | Day surgery (SDC) | payer OTHER ==
[~2023-01-03] VITALS: Ht 180.3 cm; Wt 90.4 kg
[~2023-01-03 06:26] MED LIST changes: +D3 H10002 PO; +FOLI800C PO; +TUME1CAP PO
[2023-01-03] MEDS ORDERED: LR 1,000 ML IV SCH ×2 (06:30→08:05)
[2023-01-03] MEDS ORDERED: EPINEPHrine 1MG/10ML SYRINGE 1.5IN As Ordered ONE (07:18)
[2023-01-03] MEDS ORDERED: THROMBIN 5,000 UNITS VIAL As Ordered ONE (07:18)
[2023-01-03] MEDS ORDERED: CETACAINE SPRAY 5GM As Ordered ONE (07:18)
[2023-01-03] MEDS ORDERED: SUGAMMADEX SODIUM 500 MG/5 ML VIAL (BRIDION) As Ordered ONE (07:52)
[2023-01-03] MEDS ORDERED: MIDAZOLAM INJ 2MG/2ML VIAL As Ordered ONE (07:52)
[2023-01-03] MEDS ORDERED: LIDOCAINE 2% 100MG/5ML SDV (FOR ANES.) As Ordered ONE (07:52)
[2023-01-03] MEDS ORDERED: fentaNYL 100 MCG/2 ML INJECTION As Ordered ONE (07:52)
[2023-01-03] MEDS ORDERED: ROCURONIUM BROMIDE 50MG/5ML VIAL As Ordered ONE (07:52)
[2023-01-03] MEDS ORDERED: ONDANSETRON 4MG 2ML VIAL As Ordered ONE (07:52)
[2023-01-03] MEDS ORDERED: ACETAMINOPHEN 1000MG 100ML IV BAG As Ordered ONE (07:52)
[2023-01-03] MEDS ORDERED: propofoL 200 MG/20 ML VIAL As Ordered ONE (07:52)
[2023-01-03] MEDS ORDERED: fentaNYL 100 MCG/2 ML INJECTION IV PRN (08:05)
[2023-01-03] MEDS ORDERED: ONDANSETRON 4MG 2ML VIAL IV PRN (08:05)
[2023-01-03] MEDS ORDERED: oxyCODONE 5MG TAB PO PRN (08:05)
[2023-01-03 09:20] VITALS: BP 144/71; TEMP 97.3; O2SAT 97
== END 2023-01-03 09:26 | disposition home or self-care (01) ==
LOC: M SDC 06:26
PROVIDERS: ATTEND Internal Medicine Pulmonary Disease
DX: C34.11 Malignant neoplasm of upper lobe, right bronchus or lung (principal); J44.9 Chronic obstructive pulmonary disease, unspecified; R59.0 Localized enlarged lymph nodes; I10 Essential (primary) hypertension; E78.5 Hyperlipidemia, unspecified; F41.1 Generalized anxiety disorder; F17.200 Nicotine dependence, unspecified, uncomplicated; Z79.02 Long term (current) use of antithrombotics/antiplatelets; Z79.82 Long term (current) use of aspirin; Z79.899 Other long term (current) drug therapy
CPT/HCPCS: 31622; 31654; J0131; J1100; J2250; J2405; J3010

== ENCOUNTER → 2023-03-28 | Outpatient (CLI) | payer OTHER ==
[~2023-03-28] MED LIST changes: +PROHANCE 279.3MG/ML 15ML VIAL As Ordered ONE; +PROHANCE 279.3MG/ML 5ML VIAL As Ordered ONE
== END ==
LOC: M RAD 12:30
PROVIDERS: ATTEND Thoracic Surgery (Cardiothoracic Vascular Surgery)
DX: C34.11 Malignant neoplasm of upper lobe, right bronchus or lung (principal)
CPT/HCPCS: 70553; A9576

== ENCOUNTER → 2023-07-16 | Outpatient (CLI) | payer OTHER ==
[~2023-07-16] MED LIST changes: -PROHANCE 279.3MG/ML 15ML VIAL As Ordered ONE; -PROHANCE 279.3MG/ML 5ML VIAL As Ordered ONE
== END ==
LOC: M PLARAD 11:42
PROVIDERS: ATTEND Thoracic Surgery (Cardiothoracic Vascular Surgery)
DX: C34.11 Malignant neoplasm of upper lobe, right bronchus or lung (principal)
CPT/HCPCS: 78815; A9552

== ENCOUNTER 2023-08-29 12:32 | Outpatient (RCR) | payer OTHER ==
[~2023-08-29 12:32] MED LIST changes: +DEXA4TA PO; +OLAN1TAB16 PO; +ONDA-84 PO; +VITA100T59 PO
[2023-09-12] MEDS ORDERED: ISOS1TAB36 PO (12:01)
== END 2023-09-09 ==
LOC: M ONCR 12:32
PROVIDERS: ATTEND General Practice
DX: Z51.0 Encounter for antineoplastic radiation therapy (principal); C34.11 Malignant neoplasm of upper lobe, right bronchus or lung

== ENCOUNTER → 2023-09-05 | Outpatient (CLI) | payer OTHER ==
[~2023-09-05] MED LIST changes: +LIDOCAINE W/EPINEPHRINE 1% 20ML VIAL As Ordered ONE; +MIDAZOLAM INJ 2MG/2ML VIAL As Ordered ONE; +NS 1,000 ML IV SCH; +ceFAZolin 2 GM/D5W 50 ML IV BAG As Ordered ONE; +ceFAZolin SOD 2 GM in IV 1 EA IV ONE; +fentaNYL 100 MCG/2 ML INJECTION As Ordered ONE
[2023-09-05 10:10] VITALS: TEMP 97.9
[2023-09-05 12:45] VITALS: BP 114/63; O2SAT 98
== END ==
LOC: M IRPRO 09:57
PROVIDERS: ATTEND Internal Medicine Hematology & Oncology
DX: C34.90 Malignant neoplasm of unspecified part of unspecified bronchus or lung (principal)
CPT/HCPCS: 36561; 99152; 99153; J0690; J2250; J3010

== ENCOUNTER → 2023-10-09 | Outpatient (RCR) | payer OTHER ==
[~2023-10-09] MED LIST changes: +ISOS1TAB36 PO; +LACT10SO3 PO; +LIDO30CR18 TOP; -LIDOCAINE W/EPINEPHRINE 1% 20ML VIAL As Ordered ONE; -MIDAZOLAM INJ 2MG/2ML VIAL As Ordered ONE; +MIRA3350 PO; -NS 1,000 ML IV SCH; +TRAZ-257 PO; -ceFAZolin 2 GM/D5W 50 ML IV BAG As Ordered ONE; -ceFAZolin SOD 2 GM in IV 1 EA IV ONE; -fentaNYL 100 MCG/2 ML INJECTION As Ordered ONE
== END ==
LOC: M ONCR 09-13 13:24
PROVIDERS: ATTEND General Practice
DX: Z51.0 Encounter for antineoplastic radiation therapy (principal); C34.11 Malignant neoplasm of upper lobe, right bronchus or lung

== ENCOUNTER 2023-10-29 14:07 | Outpatient (RCR) | payer OTHER | END 2023-11-09 | LOC: M ONCR 14:07 | PROVIDERS: ATTEND General Practice | DX: Z51.0 Encounter for antineoplastic radiation therapy (principal); C34.11 Malignant neoplasm of upper lobe, right bronchus or lung ==

== ENCOUNTER 2023-11-04 21:48 | Emergency (ER) | payer OTHER ==
[~2023-11-04] VITALS: Ht 180.3 cm; Wt 88.5 kg
[2023-11-04 21:49] VITALS: BP 123/81; TEMP 97.3; O2SAT 98
[2023-11-05] MEDS: OXYMETAZOLINE 0.05% NASAL SPRAY (AFRIN) ONE (00:53)
[2023-11-05 01:21] LABS: HEMATOCRIT 43.4 % (42.0-52.0); HEMOGLOBIN 14.7 g/dl (13.5-17.5); MEAN CORPUSCULAR HEMOGLOBIN 30.6 pg (27.0-33.0); MEAN CORPUSCULAR HGB CONC 33.9 g/dl (32.0-36.5); MEAN CORPUSCULAR VOLUME 90.4 fl (80.0-96.0); PLATELET COUNT, AUTOMATED 195 10^3/uL (150-450); WHITE BLOOD COUNT 8.3 10^3/uL (4.0-10.0)
[2023-11-05 01:48] LABS: INR 1.23; PARTIAL THROMBOPLASTIN TIME 31.7 SECONDS (24.8-34.2); PROTHROMBIN TIME 15.2 SECONDS (12.5-14.5)
== END 2023-11-05 01:55 | disposition home or self-care (01) ==
LOC: M ED 21:48
DX: R04.0 Epistaxis (principal); I10 Essential (primary) hypertension; E78.5 Hyperlipidemia, unspecified; K59.00 Constipation, unspecified; Z79.1 Long term (current) use of non-steroidal anti-inflammatories (NSAID); Z79.810 Long term (current) use of selective estrogen receptor modulators (SERMs); Z79.899 Other long term (current) drug therapy

== ENCOUNTER → 2023-11-19 | Outpatient (CLI) | payer OTHER ==
[~2023-11-19] MED LIST changes: +ISOVUE-370 76% 100ML VIAL As Ordered ONE
== END ==
LOC: M RAD 10:37
PROVIDERS: ATTEND Internal Medicine Hematology & Oncology
DX: C34.90 Malignant neoplasm of unspecified part of unspecified bronchus or lung (principal)
CPT/HCPCS: 71260; Q9967

== ENCOUNTER → 2024-04-07 | Outpatient (CLI) | payer OTHER ==
[~2024-04-07] MED LIST changes: +AUGM500T34 PO; +CLIN-250; +GASTROGRAFIN SOLUTION 30ML As Ordered ONE; +GNP250TA9 PO; +HALO0.052 TOP; +POTA-150 PO
== END ==
LOC: M RAD 08:33
PROVIDERS: ATTEND Internal Medicine Medical Oncology
DX: C34.90 Malignant neoplasm of unspecified part of unspecified bronchus or lung (principal)
CPT/HCPCS: 71260; 74177; J1642; Q9963; Q9967

== ENCOUNTER 2024-04-15 22:44 | Inpatient (IN) | payer OTHER ==
[~2024-04-15] VITALS: Ht 180.3 cm; Wt 76.9 kg
[~2024-04-15 22:44] MED LIST changes: -GASTROGRAFIN SOLUTION 30ML As Ordered ONE; -HALO0.052 TOP; +HALO0.056 TOP; -ISOVUE-370 76% 100ML VIAL As Ordered ONE; -LACT10SO3 PO; +LACT10SO94 PO
[2024-04-16 00:48] LABS: BASO # 0.1 10^3/uL (0.0-0.2); BASO % 0.5 % (0.0-1.0); EOS # 0.2 10^3/uL (0.0-0.5); EOS % 1.6 % (0.0-3.0); HEMATOCRIT 43.1 % (42.0-52.0); HEMOGLOBIN 14.3 g/dl (13.5-17.5); LYMPH # 0.6 10^3/uL (1.5-5.0); LYMPH % 4.2 % (24.0-44.0); MEAN CORPUSCULAR HEMOGLOBIN 29.5 pg (27.0-33.0); MEAN CORPUSCULAR HGB CONC 33.2 g/dl (32.0-36.5); MONO # 1.2 10^3/uL (0.0-0.8); MONO % 8.5 % (2.0-8.0); NEUTROPHILS # 12.4 10^3/uL (1.5-8.5); NEUTROPHILS % 84.6 % (36.0-66.0); PLATELET COUNT, AUTOMATED 165 10^3/uL (150-450); RED BLOOD COUNT 4.84 10^6/uL (4.30-6.10); WHITE BLOOD COUNT 14.6 10^3/uL (4.0-10.0)
[2024-04-16] MEDS ORDERED: ISOVUE-370 76% 100ML VIAL As Ordered ONE (00:48)
[2024-04-16 01:04] LABS: ALBUMIN 3.3 G/DL (3.2-5.2); ALKALINE PHOSPHATASE 48 U/L (40-129); ALT/SGPT 20 U/L (7.0-40); AST/SGOT 13 U/L (<34); BILIRUBIN,TOTAL 1.4 MG/DL (0.3-1.2); BLOOD UREA NITROGEN 16 MG/DL (9-23); CALCIUM LEVEL 9.1 MG/DL (8.3-10.6); CARBON DIOXIDE LEVEL 27 MMOL/L (20-31); CHLORIDE LEVEL 103 MMOL/L (98-107); CREATININE FOR GFR 1.25 MG/DL (0.70-1.30); GLOMERULAR FILTRATION RATE > 60.0 (>49); GLUCOSE, FASTING 82 MG/DL (74-106); POTASSIUM SERUM 3.7 MMOL/L (3.5-5.1); SODIUM LEVEL 138 MMOL/L (136-145); TOTAL PROTEIN 6.4 G/DL (5.7-8.2)
[2024-04-16] MEDS: PIPERACILLIN/TAZOBACTAM SOD 4.5 GM in DEXTROSE 5% (D5W) ADV/MINI-BAG 50 ML IV ONE (02:10)
[2024-04-16] MEDS ORDERED: ESSE250T PO (03:26)
[2024-04-16] MEDS ORDERED: ODOR100T3 PO (03:26)
[2024-04-16] MEDS ORDERED: ASCO500T PO (03:26)
[2024-04-16] MEDS ORDERED: FOLI1TAB11 PO (03:26)
[2024-04-16] MEDS ORDERED: HOME MED LIST COMPLETE! XX SCH (03:30)
[2024-04-16 05:58] VITALS: BP 106/64; TEMP 99.1; O2SAT 90; O2SAT 92
[2024-04-16 06:02] LABS: APPEARANCE, URINE CLEAR (CLEAR); BACTERIA, URINE AUTO NEGATIVE (NEGATIVE); BILIRUBIN, URINE AUTO NEGATIVE (NEGATIVE); BLOOD, URINE BLOOD NEGATIVE (NEGATIVE); COLOR, URINE YELLOW (YELLOW); GLUCOSE, URINE (UA) AUTO NEGATIVE (NEGATIVE); KETONE, URINE AUTO NEGATIVE (NEGATIVE); LEUKOCYTE ESTERASE, URINE AUTO NEGATIVE (NEGATIVE); NITRITE, URINE AUTO NEGATIVE (NEGATIVE); PROTEIN, URINE AUTO NEGATIVE (NEGATIVE); RBC, URINE AUTO 0 /HPF (0-3); SPECIFIC GRAVITY URINE AUTO 1.039 (1.002-1.035); SQUAMOUS EPITHELIAL CELL UR AU 0 /HPF (0-6); UROBILINOGEN, URINE AUTO 0.2 mg/dL (0.0-2.0); WBC, URINE AUTO 0 /HPF (0-3)
[2024-04-16 08:10] VITALS: BP 102/60; TEMP 98.2; O2SAT 94
[2024-04-16 08:14] LABS: BASO # 0.1 10^3/uL (0.0-0.2); BASO % 0.6 % (0.0-1.0); EOS # 0.2 10^3/uL (0.0-0.5); EOS % 1.7 % (0.0-3.0); HEMATOCRIT 41.5 % (42.0-52.0); HEMOGLOBIN 13.7 g/dl (13.5-17.5); LYMPH # 0.6 10^3/uL (1.5-5.0); LYMPH % 4.2 % (24.0-44.0); MEAN CORPUSCULAR HEMOGLOBIN 29.5 pg (27.0-33.0); MEAN CORPUSCULAR VOLUME 89.4 fl (80.0-96.0); MONO # 1.2 10^3/uL (0.0-0.8); MONO % 9.1 % (2.0-8.0); NEUTROPHILS # 11.1 10^3/uL (1.5-8.5); NEUTROPHILS % 83.8 % (36.0-66.0); PLATELET COUNT, AUTOMATED 154 10^3/uL (150-450); RED BLOOD COUNT 4.64 10^6/uL (4.30-6.10); WHITE BLOOD COUNT 13.3 10^3/uL (4.0-10.0)
[2024-04-16] MEDS: HEPARIN SOD (PORCINE) 5000UNITS/ML 1ML VIAL/SYRINGE SC SCH (08:29)
[2024-04-16] MEDS: PIPERACILLIN/TAZOBACTAM SOD 4.5 GM in DEXTROSE 5% (D5W) ADV/MINI-BAG 50 ML IV SCH (08:29)
[2024-04-16 08:34] LABS: CALCIUM LEVEL 8.7 MG/DL (8.3-10.6); CREATININE FOR GFR 1.34 MG/DL (0.70-1.30); GLOMERULAR FILTRATION RATE 57.9 (>49); MAGNESIUM LEVEL 1.9 MG/DL (1.8-2.4); POTASSIUM SERUM 3.7 MMOL/L (3.5-5.1)
[2024-04-16] MEDS ORDERED: NICOTINE POLACRILEX 2 MG GUM PO PRN (08:55)
[2024-04-16] MEDS: NICOTINE 7 MG/24 HR TRANSDERMAL TD SCH (10:34)
[2024-04-16] MEDS: NS 1,000 ML IV SCH (10:38)
[2024-04-16] MEDS: ASPIRIN 81MG ENTERIC TABLET PO SCH (10:52)
[2024-04-16] MEDS: FOLIC ACID 1MG TAB PO SCH (10:52)
[2024-04-16] MEDS: METOPROLOL SUCC *XL* 25MG TAB (TopROL *XL*) PO SCH (10:53)
[2024-04-16] MEDS: ATORVASTATIN 20 MG TAB PO SCH (10:53)
[2024-04-16 12:00] VITALS: BP 107/63; TEMP 98.1; O2SAT 95
[2024-04-16] MEDS: ALPRAZolam 0.25 MG TAB PO PRN (20:17)
[2024-04-16 20:39] VITALS: BP 116/73; TEMP 98.4; O2SAT 96
[2024-04-17 04:00] VITALS: BP 114/76; TEMP 98.1; O2SAT 96
[2024-04-17 06:14] LABS: BASO # 0.1 10^3/uL (0.0-0.2); BASO % 0.9 % (0.0-1.0); EOS # 0.3 10^3/uL (0.0-0.5); EOS % 3.3 % (0.0-3.0); HEMATOCRIT 42.7 % (42.0-52.0); HEMOGLOBIN 14.2 g/dl (13.5-17.5); LYMPH # 0.6 10^3/uL (1.5-5.0); LYMPH % 7.5 % (24.0-44.0); MEAN CORPUSCULAR HEMOGLOBIN 29.5 pg (27.0-33.0); MEAN CORPUSCULAR HGB CONC 33.3 g/dl (32.0-36.5); MEAN CORPUSCULAR VOLUME 88.8 fl (80.0-96.0); MONO # 0.7 10^3/uL (0.0-0.8); NEUTROPHILS % 78.6 % (36.0-66.0); PLATELET COUNT, AUTOMATED 162 10^3/uL (150-450); RED BLOOD COUNT 4.81 10^6/uL (4.30-6.10); WHITE BLOOD COUNT 7.7 10^3/uL (4.0-10.0)
[2024-04-17 06:35] LABS: CALCIUM LEVEL 8.5 MG/DL (8.3-10.6); CREATININE FOR GFR 1.3 MG/DL (0.70-1.30); GLOMERULAR FILTRATION RATE 59.9 (>49); MAGNESIUM LEVEL 2.2 MG/DL (1.8-2.4); POTASSIUM SERUM 3.9 MMOL/L (3.5-5.1)
[2024-04-17] MEDS ORDERED: CIPR500T39 PO (07:41)
[2024-04-17] MEDS ORDERED: METR-265 PO (07:41)
[2024-04-17 08:53] VITALS: BP 156/82
[2024-04-17] MEDS ORDERED: SODIUM CHLORIDE 0.9% INJ 10 ML SYR IV PRN (08:55)
[2024-04-17] MEDS: SODIUM CHLORIDE 0.9% INJ 10 ML SYR IV SCH (09:19)
== END 2024-04-17 09:45 | disposition home or self-care (01) | DRG 244 ==
LOC: M ED 22:44 → M ED INP 22:45 → M MS5PR 04-16 05:57 → OBSVTOIN 04-16 11:06
PROVIDERS: ADMIT Student in an Organized Health Care Education/Training Program; ATTEND Student in an Organized Health Care Education/Training Program
DX: K57.32 Diverticulitis of large intestine without perforation or abscess without bleeding (principal); C34.11 Malignant neoplasm of upper lobe, right bronchus or lung; N30.90 Cystitis, unspecified without hematuria; I10 Essential (primary) hypertension; E78.5 Hyperlipidemia, unspecified; E86.0 Dehydration; F41.9 Anxiety disorder, unspecified; I73.9 Peripheral vascular disease, unspecified; F17.200 Nicotine dependence, unspecified, uncomplicated; Z92.21 Personal history of antineoplastic chemotherapy; Z92.3 Personal history of irradiation; Z79.82 Long term (current) use of aspirin; Z79.899 Other long term (current) drug therapy; I25.10 Atherosclerotic heart disease of native coronary artery without angina pectoris; Z98.62 Peripheral vascular angioplasty status; Z79.69 Long term (current) use of other immunomodulators and immunosuppressants

== ENCOUNTER → 2024-04-30 | Outpatient (CLI) | payer OTHER ==
[~2024-04-30] MED LIST changes: +ASCO500T PO; +CIPR500T39 PO; +ESSE250T PO; +FOLI1TAB11 PO; +METR-265 PO; +ODOR100T3 PO
== END ==
LOC: M ONCR 10:45
PROVIDERS: ATTEND General Practice
DX: C34.11 Malignant neoplasm of upper lobe, right bronchus or lung (principal); Z92.21 Personal history of antineoplastic chemotherapy; Z79.899 Other long term (current) drug therapy; Z92.3 Personal history of irradiation; F17.210 Nicotine dependence, cigarettes, uncomplicated

== ENCOUNTER → 2024-07-18 | Outpatient (CLI) | payer OTHER ==
[~2024-07-18] MED LIST changes: +ISOVUE-370 76% 100ML VIAL As Ordered ONE; +OMEG10002 PO; +POTA-136 PO
== END ==
LOC: M RAD 09:02
PROVIDERS: ATTEND Internal Medicine Medical Oncology
DX: C34.90 Malignant neoplasm of unspecified part of unspecified bronchus or lung (principal)
CPT/HCPCS: 71260; 74177; J1642; Q9967

== ENCOUNTER 2024-07-30 07:59 | Day surgery (SDC) | payer OTHER ==
[~2024-07-30] VITALS: Ht 180.3 cm; Wt 85.3 kg
[~2024-07-30 07:59] MED LIST changes: -ISOVUE-370 76% 100ML VIAL As Ordered ONE
[2024-07-30 09:45] VITALS: BP 130/83; O2SAT 100
== END 2024-07-30 10:05 | disposition home or self-care (01) ==
LOC: M OPP 07:59
PROVIDERS: ATTEND Surgery
DX: D12.3 Benign neoplasm of transverse colon (principal); D12.0 Benign neoplasm of cecum; K57.32 Diverticulitis of large intestine without perforation or abscess without bleeding; K57.30 Diverticulosis of large intestine without perforation or abscess without bleeding; Z79.899 Other long term (current) drug therapy; Z86.718 Personal history of other venous thrombosis and embolism; Z87.891 Personal history of nicotine dependence

== ENCOUNTER → 2024-08-11 | Outpatient (CLI) | payer OTHER | LOC: M PLARAD 11:28 | PROVIDERS: ATTEND General Practice | DX: C34.11 Malignant neoplasm of upper lobe, right bronchus or lung (principal) | CPT/HCPCS: 78815; A9552 ==

== ENCOUNTER → 2024-08-20 | Outpatient (CLI) | payer OTHER | LOC: M ONCR 13:09 | PROVIDERS: ATTEND General Practice | DX: C34.11 Malignant neoplasm of upper lobe, right bronchus or lung (principal); C78.1 Secondary malignant neoplasm of mediastinum; Z92.21 Personal history of antineoplastic chemotherapy; Z92.3 Personal history of irradiation; F17.218 Nicotine dependence, cigarettes, with other nicotine-induced disorders; Z79.82 Long term (current) use of aspirin; Z79.899 Other long term (current) drug therapy ==

== ENCOUNTER → 2024-09-08 | Outpatient (RCR) | payer OTHER ==
[~2024-09-08] MED LIST changes: +MELO15TA28 PO
== END ==
LOC: M ONCR 08-21 10:22
PROVIDERS: ATTEND General Practice
DX: Z51.0 Encounter for antineoplastic radiation therapy (principal); C34.11 Malignant neoplasm of upper lobe, right bronchus or lung

== ENCOUNTER 2024-09-09 14:09 | Outpatient (RCR) | payer OTHER ==
[2024-09-16] MEDS ORDERED: LIDO15SO9 PO (13:51)
[2024-09-17] MEDS ORDERED: vitamin e (13:31)
== END 2024-10-08 ==
LOC: M ONCR 14:09
PROVIDERS: ATTEND General Practice
DX: Z51.0 Encounter for antineoplastic radiation therapy (principal); C34.11 Malignant neoplasm of upper lobe, right bronchus or lung

== ENCOUNTER → 2024-10-15 | Outpatient (CLI) | payer OTHER ==
[~2024-10-15] MED LIST changes: +LIDO15SO9 PO; +vitamin e
== END ==
LOC: M EKG 14:09
PROVIDERS: ATTEND General Practice
DX: C34.11 Malignant neoplasm of upper lobe, right bronchus or lung (principal)

== ENCOUNTER → 2024-10-15 | Outpatient (REF) | payer OTHER ==
[2024-10-15 15:04] LABS: PSA SCREENING 2.28 NG/ML (< 4.00)
[2024-10-15 15:08] LABS: CHOLESTEROL RISK RATIO 3.78 (<5); HDL CHOLESTEROL 32.8 MG/DL (>40); LDL CHOLESTEROL 69.8 MG/DL (<100); NON-HDL-C 91.2 MG/DL
== END ==
LOC: M LAB REF 14:06
PROVIDERS: ATTEND Physician Assistant Medical
DX: E78.5 Hyperlipidemia, unspecified (principal); Z12.5 Encounter for screening for malignant neoplasm of prostate

== ENCOUNTER → 2024-12-16 | Outpatient (CLI) | payer OTHER ==
[~2024-12-16] MED LIST changes: +ALBU8.5H; +AZIT-12 PO; -ESSE250T PO; +MAGN250T17 PO; +SYMB16INH INH
== END ==
LOC: M PLARAD 13:44
PROVIDERS: ATTEND General Practice
DX: C34.11 Malignant neoplasm of upper lobe, right bronchus or lung (principal)
CPT/HCPCS: 78815; A9552

== ENCOUNTER → 2024-12-17 | Outpatient (CLI) | payer OTHER | LOC: M ONCR 15:35 | PROVIDERS: ATTEND General Practice | DX: C34.11 Malignant neoplasm of upper lobe, right bronchus or lung (principal); F17.210 Nicotine dependence, cigarettes, uncomplicated; K40.90 Unilateral inguinal hernia, without obstruction or gangrene, not specified as recurrent; Z79.82 Long term (current) use of aspirin; Z79.899 Other long term (current) drug therapy; Z92.21 Personal history of antineoplastic chemotherapy; Z92.3 Personal history of irradiation ==

== ENCOUNTER 2025-01-30 15:37 | Outpatient (RCR) | payer OTHER ==
[~2025-01-30 15:37] MED LIST changes: +GUAI100S4 PO; +GUAI1SOL7 PO; +PRED10TA2 PO; +PRED20TA PO; +PRED50TA57 PO; +PRED5TA PO; +VITA100T91 PO
[2025-02-02] MEDS ORDERED: SYMB16INH (07:31)
[2025-02-03] MEDS ORDERED: POTA-136 PO (14:53)
[2025-02-05] MEDS ORDERED: IPRA0.00 INH (15:32)
== END 2025-02-08 ==
LOC: M ONCR 15:37
PROVIDERS: ATTEND General Practice
DX: Z51.0 Encounter for antineoplastic radiation therapy (principal); C34.11 Malignant neoplasm of upper lobe, right bronchus or lung

== ENCOUNTER 2025-03-16 11:56 | Emergency (ER) | payer OTHER ==
[~2025-03-16] VITALS: Ht 180.3 cm; Wt 75.0 kg
[~2025-03-16 11:56] MED LIST changes: +IPRA0.00 INH; +SYMB16INH
[2025-03-16] MEDS: ACETAMINOPHEN 500 MG TAB PO ONE (15:26)
[2025-03-16] MEDS: IPRATROPIUM 0.5 MG/ALBUTEROL 2.5 MG INH SOL UD 3 ML NEB PRN (15:41)
[2025-03-16 18:22] VITALS: BP 123/71; TEMP 97.1; O2SAT 99
== END 2025-03-16 18:29 | disposition home or self-care (01) ==
LOC: M ED 11:56
DX: M94.0 Chondrocostal junction syndrome [Tietze] (principal); R91.1 Solitary pulmonary nodule; I10 Essential (primary) hypertension; E78.5 Hyperlipidemia, unspecified; C34.90 Malignant neoplasm of unspecified part of unspecified bronchus or lung; F17.210 Nicotine dependence, cigarettes, uncomplicated; Z79.51 Long term (current) use of inhaled steroids; Z79.1 Long term (current) use of non-steroidal anti-inflammatories (NSAID); Z79.899 Other long term (current) drug therapy; Z79.810 Long term (current) use of selective estrogen receptor modulators (SERMs)

== ENCOUNTER → 2025-03-30 | Outpatient (CLI) | payer OTHER ==
[~2025-03-30] MED LIST changes: +AMOX500C PO; +VENL150C43 PO
== END ==
LOC: M ONCR 15:14
PROVIDERS: ATTEND General Practice
DX: C34.11 Malignant neoplasm of upper lobe, right bronchus or lung (principal); F41.9 Anxiety disorder, unspecified; F32.A Depression, unspecified; Z92.21 Personal history of antineoplastic chemotherapy; Z92.3 Personal history of irradiation

== ENCOUNTER → 2025-05-06 | Outpatient (CLI) | payer OTHER | LOC: M ONCR 15:29 | PROVIDERS: ATTEND General Practice | DX: F39 Unspecified mood [affective] disorder (principal); J44.9 Chronic obstructive pulmonary disease, unspecified; R05.9 Cough, unspecified; Z92.3 Personal history of irradiation ==

== ENCOUNTER → 2025-05-18 | Outpatient (CLI) | payer OTHER ==
[~2025-05-18] MED LIST changes: +QUET50TA4 PO
== END ==
LOC: M PLARAD 09:20
PROVIDERS: ATTEND General Practice
DX: C34.11 Malignant neoplasm of upper lobe, right bronchus or lung (principal)
CPT/HCPCS: 78815; A9552

== ENCOUNTER → 2025-05-19 | Outpatient (CLI) | payer OTHER | LOC: M ONCR 15:46 | PROVIDERS: ATTEND General Practice | DX: C34.11 Malignant neoplasm of upper lobe, right bronchus or lung (principal); R91.8 Other nonspecific abnormal finding of lung field; G47.00 Insomnia, unspecified; F17.218 Nicotine dependence, cigarettes, with other nicotine-induced disorders; Z92.21 Personal history of antineoplastic chemotherapy; Z92.3 Personal history of irradiation; Z71.2 Person consulting for explanation of examination or test findings; Z79.1 Long term (current) use of non-steroidal anti-inflammatories (NSAID); Z79.51 Long term (current) use of inhaled steroids; Z79.899 Other long term (current) drug therapy; Z79.82 Long term (current) use of aspirin ==